=== PATIENT | female | born 1970 | race African-American/Black ===

== ENCOUNTER 2018-04-24 11:34 | Emergency (ER) | payer OTHER, SELFPAY ==
[2018-04-24 11:40] VITALS: BP 150/98; PULSE 76; RESP 15; TEMP 36.9; O2SAT 99; BMI 28.1
--- NOTE | 2018-04-24 12:25 | ED_ITS ---
HPI - Extremity Injury (Lower) <CHAI Tan - Last Filed: 04/24/18 13:37> General Chief Complaint: Extremity Injury, Lower Stated Complaint: LEFT BIG TOE INJURY Time Seen by Provider: 04/24/18 12:07 Source: patient Mode of arrival: ambulatory Limitations: no limitations History of Present Illness HPI Narrative: L big toe nail is loose, has acrylic nail on it, denies any known injury/trauma MD complaint: other Onset (ago): unknown Injury: Left: toes Type of Injury: unknown Severity: mild Relieving factors: nothing Exacerbating factors: weight bearing Other symptoms: none Related Data Home Medications Medication Instructions Recorded Confirmed fluticasone-salmeterol [Advair 2 puff INH BID #0 08/21/17 04/24/18 Diskus] celecoxib 100 mg PO BID 04/24/18 04/24/18 gabapentin [Gralise] 3 tab PO DAILY 04/24/18 04/24/18 loratadine 10 mg PO DAILY 04/24/18 04/24/18 montelukast 10 mg PO DAILY 04/24/18 04/24/18 venlafaxine 2 cap PO DAILY 04/24/18 04/24/18 Allergies Allergy/AdvReac Type Severity Reaction Status Date / Time latex [LATEX] Allergy Unknown RASH Verified 04/24/18 11:40 oxycodone [OXYCODONE] Allergy Unknown RASH/ Verified 04/24/18 11:40 NAUSEA AND VOMITING Review of Systems <CHAI Tan - Last Filed: 04/24/18 13:37> Review of Systems isolated issue to toe nail All systems reviewed & are unremarkable except as noted in HPI and below Constitutional Reports as per HPI and Reports system reviewed and no additional complaints, except as docu Musculoskeletal Reports as per HPI, Denies abnormal gait, Denies deformity, Denies joint swelling, Denies limited range of motion, Denies muscle weakness and Denies numbness Integumentary/Breasts Reports as per HPI, Denies lesions, Reports nail changes, Denies rash, Denies skin swelling, Denies skin ulcer, Denies sores, Denies unusual bruising and Denies wounds Neurologic Denies abnormal gait and Denies numbness Exam <CHAI Tan - Last Filed: 04/24/18 13:37> Initial Vital Signs Initial Vital Signs: Vital Signs Temperature 98.5 F 04/24/18 11:40 Pulse Rate 76 04/24/18 11:40 Respiratory Rate 15 04/24/18 11:40 Blood Pressure 150/98 H 04/24/18 11:40 Pulse Oximetry 99 04/24/18 11:40 Const General: cooperative, healthy appearing, comfortable, well developed and well groomed Nutritional Appearance: average body habitus Orientation: alert, awake and oriented x3 Resp Effort & Inspection: normal respiratory effort and able to speak in complete sentences Back/Spine/Pelvis Cervical Spine: cervical ROM normal Thoracic/Lumbar Spine: thoraco-lumbar ROM limited Skin General: no rashes or lesions noted, elasticity normal, turgor normal and warm Lesions: lesions noted Rashes: rash noted Wounds: wound noted Nails: other Other: L great toe, partial nail avulsion, nail loose from both sides of cuticle but intact at base and corners, pt is pulling nail up and out, even though I told her to leave it alone, she was making it worse, skin under nail intact, no wound, no injury, no infection, thick acrylic nail over top of real nail, approx 3-4mm thick Neuro General: alert, awake and oriented x3 Cranial Nerves: CN's II-XI intact bilaterally Cognition: normal cognition Speech: speech normal Motor: muscle tone normal throughout Sensory Exam: no sensory deficits noted Psych Appearance: grossly normal and well kempt Mental Status: mental status grossly normal Speech and Movement: speech and movement normal Mood: congruent mood Affect: normal affect Attitude: cooperative Thought Process: normal Thought Content: normal Judgment: judgment good <Rae Yang MD - Last Filed: 04/24/18 20:16> Initial Vital Signs Initial Vital Signs: Vital Signs Temperature 98.5 F 04/24/18 11:40 Pulse Rate 76 04/24/18 11:40 Respiratory Rate 15 04/24/18 11:40 Blood Pressure 150/98 H 04/24/18 11:40 Pulse Oximetry 99 04/24/18 11:40 Course <CHAI Tan - Last Filed: 04/24/18 13:37> Course Narrative: tx options discussed, and agreed it was better to leave nail and let it grow out on its own, nail needs trimmed back, nail is approx 6mm too long past toe, recommended she trim this herself or go back to nail salon that put the acrylic on, and then wrap toe to keep it from getting caught on anything , pt wants to wrap it herself after the nail is trimmed down Vital Signs - 8 hr 04/24/18 11:40 Temperature 98.5 F Pulse Rate 76 Respiratory Rate 15 Blood Pressure 150/98 H Pulse Oximetry 99 <Rae Yang MD - Last Filed: 04/24/18 20:16> Vital Signs - 8 hr 04/24/18 11:40 Temperature 98.5 F Pulse Rate 76 Respiratory Rate 15 Blood Pressure 150/98 H Pulse Oximetry 99 MDM - Extremity Injury (Lower) <CHAI Tan - Last Filed: 04/24/18 13:37> Differential Diagnosis Likely other (nail avulsion, abscess, paronychia, injury/trauma, fungus, cellulitis) Discharge Plan Departure Patient Disposition: Home Clinical Impression: Avulsion of nail Discharge Date/Time: 04/24/18 12:45 Interventions: ED Discharge Assessment Last Done: 04/24/18 12:58 Instructions: DI for Nail Avulsion Injury Prescriptions: No Action fluticasone-salmeterol [Advair Diskus] 250 MCG/50 MCG blister with device 2 puff INH BID Qty: 0 RF: 0 venlafaxine 37.5 mg capsule,extended release 24hr 2 cap PO DAILY RF: 0 montelukast 10 mg tablet 10 mg PO DAILY RF: 0 celecoxib 100 mg capsule 100 mg PO BID RF: 0 loratadine 10 mg tablet 10 mg PO DAILY RF: 0 gabapentin [Gralise] 600 mg tablet extended release 24 hr 3 tab PO DAILY RF: 0 Referrals: Balbir Luevano DPM [Non-Staff] - Leyda Garcia DPM [Physician] - (follow up with podiatry as needed) Solange Vargas DPM [Non-Staff] -
--- NOTE | 2018-04-24 12:55 | PC.NURSE ---
1230 minor tenderness around great left toe cuticle. pt had acrylic placed instead of tip and it pulled on nail bed. no drainage noted.
== END 2018-04-24 12:45 | disposition home or self-care (01) ==
PROVIDERS: Emergency Provider Nurse Practitioner
DX: S91.209A Unspecified open wound of unspecified toe(s) with damage to nail, initial encounter (principal)
CPT/HCPCS: 99282

== ENCOUNTER → 2018-09-06 10:02 | Outpatient (CLI) | payer OTHER, SELFPAY ==
--- NOTE | 2018-09-06 | DI.MRI.S_ITS ---
PROCEDURE: MR LUMBAR SPINE WO CON INDICATIONS: Low back and left hip pain. Left leg radicular pain TECHNIQUE: Noncontrast sagittal T1 spin echo and T2 fast echo, sagittal STIR, axial T1 and T2 fast spin echo through the lumbar spine. In cases with scoliosis, additional coronal T2 fast spin echo may be performed. COMPARISON: [facility], MR, L-SPINE W&WO CONTRAST, 08/21/2017, 11:20. FINDINGS: Image quality: Excellent. Alignment and Curvature: There is normal bony alignment. Bone Marrow: Marrow is of normal overall signal. No acute vertebral body compression fractures. Spinal Cord: Conus medullaris terminates at the L1-L2 level. Visualized cord demonstrates normal signal and size. Paraspinous Soft Tissues: No paravertebral masses. L1-L2: Normal appearance L2-L3: Left-sided far lateral broad-based posterior disc bulge. This is probably unchanged although better visualized on the current examination. Bilateral facet arthropathy. No high-grade central canal narrowing. Minimal bilateral partial effacement of the lateral recess although appears symmetric. Mild left foraminal narrowing. No right foraminal stenosis. L3-L4: Mild far lateral left broad-based disc bulge and bilateral facet arthropathy, minimal. This also appears unchanged No canal or lateral recess narrowing. Mild left foraminal narrowing. No right-sided foraminal stenosis. No definite interval change L4-L5: Mild broad-based posterior disc bulge bilateral facet arthropathy. No definite high-grade central canal stenosis. Minimal partial effacement of the left and right lateral recesses although appears symmetric. No foraminal narrowing. L5-S1: Posterior annular fissure and broad-based posterior disc bulge with mild superimposed central disc protrusion bilateral facet arthropathy. Mild canal narrowing. Minimal effacement of the lateral recesses although appears symmetric. Mild bilateral foraminal narrowing. No interval change IMPRESSION: Overall, no definite interval change since 08/21/17. No high-grade canal stenosis. Mild foraminal narrowing as detailed above, left slightly greater than right at L2-L3 and L3-L4. Dictated by: Luc Keller M.D. on 09/08/2018 at 9:14 Approved by: Luc Keller M.D. on 09/08/2018 at 9:21
== END ==
PROVIDERS: Visit Provider Physical Medicine & Rehabilitation Pain Medicine
DX: M54.5 Low back pain (principal); M25.552 Pain in left hip; M51.16 Intervertebral disc disorders with radiculopathy, lumbar region; M51.17 Intervertebral disc disorders with radiculopathy, lumbosacral region; M47.26 Other spondylosis with radiculopathy, lumbar region; M47.27 Other spondylosis with radiculopathy, lumbosacral region; M48.061 Spinal stenosis, lumbar region without neurogenic claudication; M48.07 Spinal stenosis, lumbosacral region
CPT/HCPCS: 72148

== ENCOUNTER 2018-11-05 19:50 | Emergency (ER) | payer OTHER, MEDICAID, SELFPAY ==
[2018-11-05 19:55] VITALS: BP 147/95; PULSE 95; RESP 20; TEMP 36.4; O2SAT 100
--- NOTE | 2018-11-05 20:21 | ED_ITS ---
HPI - Abdominal Pain General Chief Complaint: Abdominal Pain Stated Complaint: surgery on , now pain on the right side Time Seen by Provider: 11/05/18 20:21 Source: patient Mode of arrival: ambulatory Limitations: no limitations History of Present Illness HPI narrative: 48-year-old female who several weeks ago underwent a laparoscopic hysterectomy and tubal and ovary removal and also a bladder sling placed. This was done at an outside facility. She has had a follow-up appointment with her primary surgeon since then. Earlier this week she started having abdominal pain. had a CT scan obtained ordered by the operative surgeon which the patient reported home was unremarkable. She returns today for worsening right upper quadrant abdominal pain. patient is still passing flatus. Still having bowel movements. No urinary symptoms. they did take her cervix. No fevers. No vomiting. she thought that she could not wait until Saturday for her follow-up visit. Related Data Home Medications Medication Instructions Recorded Confirmed fluticasone propion-salmeterol 2 puff INH BID #0 08/21/17 04/24/18 [Advair Diskus] celecoxib 100 mg PO BID 04/24/18 04/24/18 gabapentin [Gralise] 3 tab PO DAILY 04/24/18 04/24/18 loratadine 10 mg PO DAILY 04/24/18 04/24/18 montelukast 10 mg PO DAILY 04/24/18 04/24/18 venlafaxine 2 cap PO DAILY 04/24/18 04/24/18 Allergies Allergy/AdvReac Type Severity Reaction Status Date / Time latex [LATEX] Allergy Unknown RASH Verified 11/05/18 20:00 oxycodone [OXYCODONE] Allergy Unknown RASH/ Verified 11/05/18 20:00 NAUSEA AND VOMITING Review of Systems Constitutional Denies fever(s) and Denies weakness Cardiovascular Denies chest pain and Denies dyspnea Respiratory Denies dyspnea Gastrointestinal Gastrointestinal: Reports abdominal pain, Denies cramping, Denies nausea and Denies vomiting Genitourinary Denies dysuria Musculoskeletal Denies myalgias and Denies arthralgias Integumentary/Breasts Denies rash Neurologic Denies weakness Hematologic/Lymphatic Denies easy bleeding and Denies easy bruising Allergic/Immunologic Denies urticaria [facility] Medical History (Updated 11/05/18 @ 23:01 by Keshawn Jesus DO) Bladder prolapse (Acute) History of hysterectomy (Acute) Social History Smoking Status: Never smoker Social History Smoking Status: Never smoker Exam Initial Vital Signs Initial Vital Signs: Vital Signs Temperature 97.5 F L 11/05/18 19:55 Pulse Rate 95 H 11/05/18 19:55 Respiratory Rate 20 11/05/18 19:55 Blood Pressure 147/95 H 11/05/18 19:55 Pulse Oximetry 100 11/05/18 19:55 Const General: cooperative, comfortable, well developed, well groomed and No acute distress Orientation: alert, awake and oriented x3 Resp Effort & Inspection: normal respiratory effort Auscultation: clear to auscultation bilaterally Cardio Rate: regular rate Rhythm: regular rhythm GI Inspection: distended (Somewhat distended for patient's states this is less than a couple days ago) Palpation: soft and tender (Patient with fairly localized tenderness just medial to her right upper abhi) Skin Other: Well-healing surgical scars consistent with her stated surgical history Neuro General: alert, awake and oriented x3 Cognition: normal cognition Speech: speech normal Extrem General: normal to inspection, capillary refill normal and No edema Psych Appearance: grossly normal and well kempt Course Orders Ordered: ED Orders 11/05/18 20:52 CT abdomen pelvis wo con Stat 11/05/18 21:01 Complete Blood Count AUTO DIFF Stat Comprehensive Metabolic Panel Stat Lipase Stat Vital Signs - 8 hr 11/05/18 19:55 Temperature 97.5 F L Pulse Rate 95 H Respiratory Rate 20 Blood Pressure 147/95 H Pulse Oximetry 100 MDM - Abdominal Pain Lab Data Attestation: I reviewed the patient's lab results. Result diagrams: 11/05/18 21:01 11/05/18 21:01 Lab Results 11/05/18 11/05/18 Range/Units 21:01 21:01 WBC 8.5 (4.5-11.0) X10^3/uL RBC 4.63 (4.0-5.2) X10^6/uL Hgb 12.2 (12.0-16.0) g/dL Hct 36.6 (36-46) % MCV 79.1 L (80-100) fL MCH 26.3 (26-34) PG MCHC 33.3 (30-36) % RDW 13.9 (11.6-14.8) % Plt Count 335 (150-400) X10^3/uL Neut % (Auto) 54.7 (50-75) % Lymph % (Auto) 27.6 (25-40) % Hanson % (Auto) 5.7 (3-14) % Eos % (Auto) 10.9 H (2-4) % Baso % (Auto) 1.1 (0-2) % Neut # (Auto) 4600 (1678-4850) /uL Lymph # (Auto) 2300 (0338-1230) /uL Hanson # (Auto) 500 (0-900) /uL Eos # (Auto) 900 H (0-450) /uL Baso # (Auto) 100 (0-100) /uL Sodium 139 (137-145) mmol/L Potassium 3.3 L (3.4-5.1) mmol/L Chloride 97 L (98-107) mmol/L Carbon Dioxide 32 (22-32) mmol/L BUN 15 (7-17) mg/dL Creatinine 0.80 (0.52-1.04) mg/dL Estimated GFR > 60.0 (>60) mL/min BUN/Creatinine Ratio 18.8 (6-22) Glucose 109 H (70-100) mg/dL Calcium 9.5 (8.4-10.2) mg/dL Total Bilirubin 0.2 (0.2-1.3) mg/dL AST 25 (14-36) IU/L ALT 33 (9-52) IU/L Alkaline Phosphatase 104 (38-126) U/L Total Protein 8.0 (6.3-8.2) g/dL Albumin 4.5 (3.5-5.0) g/dL Globulin 3.5 (1.7-4.1) g/dL Albumin/Globulin Ratio 1.3 (1.0-2.8) Lipase 85 (23-300) U/L Imaging Data CT scan - abdomen: Radiologist's impression: Minimal bilateral lower lobe subsegmental atelectasis otherwise unremarkable. MDM Narrative Medical decision making narrative: Patient had a relatively benign abdominal exam. I did talk with her regarding her options of obtaining a CT scan today to evaluate for intra-abdominal surgical pathology. Informed her that I felt that would be unlikely if an infection had developed this far out. I also felt that to be unlikely that she had a bowel perforation secondary to the surgery this far out from the surgery. Her wounds look well. I felt that an abscess was unlikely. I did give her the option of waiting to see if her symptoms do not improve over the next couple days and waiting for [place] on Saturday however the patient stated that she wanted to find out what was going on so CT scan was ordered. This showed no signs of abscess, seroma or other emergent abdominal surgical pathology. There is no indication for antibiotics. She was instructed to keep her follow-up appointment on Saturday. She was given return precautions. Both her and her who is at bedside expressed understanding and agreement with plan. Discharge Plan Departure Patient Disposition: Home Clinical Impression: Post-operative pain Abdominal pain Qualifiers: Abdominal location: right upper quadrant Qualified Code(s): R10.11 - Right upper quadrant pain Discharge Date/Time: 11/05/18 23:02 Instructions: DI for Abdominal Pain-Adult Activity Restrictions/Additional Instructions: Your CT scan today did not show any signs of infection or obstructions. Keep your scheduled follow-up appointment with your operative surgeon on Saturday. Continue all of her medications as directed by your surgeon. Return to the [facility] department for any new or worsening symptoms Prescriptions: No Action fluticasone propion-salmeterol [Advair Diskus] 250 MCG/50 MCG blister with device 2 puff INH BID Qty: 0 RF: 0 venlafaxine 37.5 mg capsule,extended release 24hr 2 cap PO DAILY RF: 0 montelukast 10 mg tablet 10 mg PO DAILY RF: 0 celecoxib 100 mg capsule 100 mg PO BID RF: 0 loratadine 10 mg tablet 10 mg PO DAILY RF: 0 gabapentin [Gralise] 600 mg tablet extended release 24 hr 3 tab PO DAILY RF: 0
--- NOTE | 2018-11-05 20:52 | DI.CT.S_ITS ---
PROCEDURE: CT ABDOMEN PELVIS WO CON INDICATIONS: Right sided abdominal pain after hysterectomy TECHNIQUE: After the administration of oral contrast, 5 mm thick sections acquired from the diaphragms to the symphysis. 5 mm coronal and sagittal reformats were performed. For radiation dose reduction, the following was used: automated exposure control, adjustment of mA and/or kV according to patient size. COMPARISON: None. FINDINGS: Image quality: Excellent. ABDOMEN: Lung bases: Lung bases demonstrate mild bibasilar atelectasis. Heart size is normal. Solid organs: Liver is normal in size. Gallbladder is surgically absent. Pancreas is normal in size. Spleen is normal in size. No adrenal nodules. Both kidneys are normal in size, without hydronephrosis or nephrolithiasis. Peritoneum and bowel: Bowel loops demonstrate normal wall thickness and caliber. No free fluid or air. Nodes and vessels: No retroperitoneal or mesenteric adenopathy by size criteria. Aorta and inferior vena cava are normal in size. Miscellaneous: No ventral hernias. There are postoperative changes involving the anterior abdominal wall from previous laparoscopic procedure. No abnormal fluid collection. PELVIS: Genitourinary: Bladder wall thickness is normal. Status post hysterectomy. Miscellaneous: No inguinal hernias or adenopathy. Partially imaged bilateral breast implants appear unremarkable. Bones: No suspicious bony lesions. No acute vertebral body compression fractures. IMPRESSION: 1. Mild bibasilar atelectasis. 2. Otherwise, CT abdomen and pelvis without acute abnormalities. Findings are concordant with preliminary radiology report. Dictated by: Jm Bhatt M.D. on 11/06/2018 at 10:40 Approved by: Jm Bhatt M.D. on 11/06/2018 at 10:44
--- NOTE | 2018-11-05 21:13 | PC.NURSE ---
Patient extremely hard IV start. Requires US guided access generally. IV cancelled and Oral Contrast started per MD Jesus
[2018-11-05 21:24] LABS: Add Manual Diff / Slide Review NO; Basophils Absolute Auto 100 /uL (0-100); Basophils Percent Auto 1.1 % (0-2); Eosinophils Absolute Auto 900 /uL (0-450); Eosinophils Percent Auto 10.9 % (2-4); Hematocrit 36.6 % (36-46); Hemoglobin 12.2 g/dL (12.0-16.0); Lymphocytes Absolute Auto 2300 /uL (1100-4500); Lymphocytes Percent Auto 27.6 % (25-40); Mean Corpuscular HGB Conc 33.3 % (30-36); Mean Corpuscular Hemoglobin 26.3 PG (26-34); Mean Corpuscular Volume 79.1 fL (80-100); Monocytes Absolute Auto 500 /uL (0-900); Monocytes Percent Auto 5.7 % (3-14); Neutrophils Absolute Auto 4600 /uL (1500-7000); Neutrophils Percent Auto 54.7 % (50-75); Platelet Count 335 X10^3/uL (150-400); Red Blood Cell Count 4.63 X10^6/uL (4.0-5.2); Red Cell Distribution Width 13.9 % (11.6-14.8); White Blood Cell Count 8.5 X10^3/uL (4.5-11.0)
[2018-11-05 21:37] LABS: Alanine Aminotransferase 33 IU/L (9-52); Albumin 4.5 g/dL (3.5-5.0); Albumin Globulin Ratio 1.3 (1.0-2.8); Alkaline Phosphatase 104 U/L (38-126); Aspartate Aminotransferase 25 IU/L (14-36); BUN Creatinine Ratio 18.8 (6-22); Bilirubin Total 0.2 mg/dL (0.2-1.3); Blood Urea Nitrogen 15 mg/dL (7-17); Calcium 9.5 mg/dL (8.4-10.2); Carbon Dioxide 32 mmol/L (22-32); Chloride 97 mmol/L (98-107); Estimated Glomerular Filt Rate > 60.0 mL/min (>60); Globulin 3.5 g/dL (1.7-4.1); Glucose 109 mg/dL (70-100); HEMOLYSIS < 15 (0-50); Lipase 85 U/L (23-300); Potassium 3.3 mmol/L (3.4-5.1); Sodium 139 mmol/L (137-145)
[2018-11-05 22:58] VITALS: BP 132/68; PULSE 72; O2SAT 99
== END 2018-11-05 23:02 | disposition home or self-care (01) ==
PROVIDERS: Emergency Provider Emergency Medicine
DX: G89.18 Other acute postprocedural pain (principal); R10.11 Right upper quadrant pain
CPT/HCPCS: 36415; 74176; 80053; 83690; 85025; 99283; 99285

== ENCOUNTER → 2019-05-08 17:46 | Outpatient (CLI) | payer OTHER, MEDICAID, SELFPAY ==
--- NOTE | 2019-05-08 | DI.MRI.S_ITS ---
PROCEDURE: MR CERVICAL SPINE WO CON INDICATIONS: Left sided neck pain with left arm radicular symptoms TECHNIQUE: Noncontrast sagittal T1 spin echo and T2 fast spin echo, sagittal STIR, foraminal oblique sagittal T2 fast spin echo, and axial gradient echo or T2 fast spin echo through the cervical spine. COMPARISON: [facility], CR, XR CERVICAL SPINE WITH OBLIQUES, 09/22/2018, 11:07. FINDINGS: Image quality: Excellent. Alignment and Curvature: There is loss of normal cervical lordosis. There is mild kyphosis at C2-C5. Bone Marrow: Marrow demonstrates normal overall signal. The there is moderate reactive signal within the endplates adjacent to the C3-C4, C4-C5, C5-C6 and C6-C7 intervertebral discs. Spinal Cord: Visualized spinal cord has normal size and signal. No cerebellar tonsillar herniation. Paraspinous Soft Tissues: No paravertebral masses. Prevertebral soft tissues are normal in thickness. C2-C3: Moderate disc desiccation. Mild facet and uncovertebral hypertrophy bilaterally. Mild canal stenosis. Moderate right and mild left foraminal stenosis. C3-C4: Moderate disc desiccation. Mild disc height loss. Mild diffuse disc bulge with superimposed small central protrusion. Moderate right and mild left facet and uncovertebral hypertrophy. Mild canal stenosis. Moderate right and mild left foraminal stenosis. C4-C5: Moderate disc height loss and desiccation. Moderate diffuse disc bulge. Moderate facet and uncovertebral hypertrophy bilaterally. Moderate canal stenosis. Mild cord flattening. Moderate left and severe right foraminal stenosis. Right C5 nerve root compression. C5-C6: Moderate disc height loss and desiccation. Mild diffuse disc bulge. Mild facet and uncovertebral hypertrophy bilaterally. Mild canal stenosis. Mild bilateral foraminal stenosis. C6-C7: Moderate disc desiccation. Mild diffuse disc bulge. Mild facet and uncovertebral hypertrophy bilaterally. Mild canal stenosis. Mild bilateral foraminal stenosis. C7-T1: Normal appearance. IMPRESSION: 1. Multilevel degenerative disc and facet disease, as well as uncovertebral hypertrophy. 2. Mid/upper cervical spine kyphosis. 3. Moderate canal stenosis with mild cord flattening at C4-C5. 4 multilevel foraminal stenoses, worst on the right at C4-C5, where there is right C5 nerve root compression. Recommend correlation with clinical symptoms to ascertain relevance of this finding. Dictated by: Shad Jean M.D. on 05/11/2019 at 8:51 Approved by: Shad Jean M.D. on 05/11/2019 at 9:44
== END ==
PROVIDERS: Visit Provider Physical Medicine & Rehabilitation Pain Medicine
DX: M50.11 Cervical disc disorder with radiculopathy, high cervical region (principal); M48.02 Spinal stenosis, cervical region; M40.202 Unspecified kyphosis, cervical region
CPT/HCPCS: 72141

== ENCOUNTER → 2019-08-05 15:18 | Outpatient (CLI) | payer OTHER, MEDICAID, SELFPAY ==
--- NOTE | 2019-08-05 15:24 | DI.MG.S_ITS ---
BILATERAL DIGITAL SCREENING MAMMOGRAM 3D/2D WITH CAD WITH AUGMENTATION: 08/05/2019 CLINICAL: Routine screening. Family history of breast cancer. Comparison is made to exams dated: 06/02/2018 mammogram, 05/30/2017 mammogram, and 05/17/2016 mammogram - [facility]. The tissue of both breasts is heterogeneously dense. This may lower the sensitivity of mammography. Current study was also evaluated with a Computer Aided Detection (CAD) system. Bilateral breast implants are stable. No significant masses, calcifications, or other findings are seen in either breast. There has been no significant interval change. IMPRESSION: NEGATIVE There is no mammographic evidence of malignancy. A 1 year screening mammogram is recommended. This exam was interpreted at Station ID: [id number]. NOTE: For mammograms, a report in lay terms will be sent to the patient. Approximately 15% of breast malignancies will not be visualized mammographically. In the management of a palpable breast mass, a negative mammogram must not discourage biopsy of a clinically suspicious lesion. Electronically Signed By: Brenda reeves/denia:08/05/2019 16:46:51 letter sent: Normal Exam ACR BI-RADS Category 1: Negative [id number]
== END ==
PROVIDERS: PCP Registered Nurse Diabetes Educator; Visit Provider Registered Nurse Diabetes Educator
DX: Z12.31 Encounter for screening mammogram for malignant neoplasm of breast (principal); Z80.3 Family history of malignant neoplasm of breast
CPT/HCPCS: 77063; 77067

== ENCOUNTER → 2020-04-06 16:18 | Outpatient (CLI) | payer MEDICARE, OTHER, SELFPAY ==
--- NOTE | 2020-04-06 16:26 | DI.MRI.S_ITS ---
PROCEDURE: MR PELIS WO/W CON INDICATIONS: Erosion of implanted urethral mesh to surrounding TECHNIQUE: Noncontrast coronal HASTE; 3-plane nonbreath-hold T2 FSE, axial T1 FSE with and without fat saturation obtained through the urethra and bladder. After the administration of contrast, axial and sagittal VIBE or 2-D FLASH with fat saturation obtained through the urethra and bladder. Optional diffusion weighted imaging or ADC may be performed. COMPARISON: None. FINDINGS: Image quality: Excellent. Urethra: A suprapubic periurethral mesh sling is present. This is seen in the coronal plane, and in the sagittal plane. The hypointensity is seen at the 10:00 o'clock and 02:00 o'clock position in the periurethral tissues. There is probable curvilinear hypointensity surrounding in the urethra posteriorly. No definite findings of hypointensity transecting the urethra. There is mild circumferential thickening of the urethral soft tissues and mild diffuse enhancement of the vaginal wall to a similar degree. No diverticula. Genitalia: Vaginal wall are normal in thickness. Images through the upper vagina demonstrate no Selene's duct cyst. More inferior images through the vagina and labia demonstrate no Bartholin's gland cyst. There is mild right labia majora enhancement suggesting inflammation. Peritoneum and bowel: No pathologic free pelvic fluid. Visualized inferior colon loops, rectum, and anus appear normal. Soft tissues: Ischiorectal fossa appears normal in morphology. No adenopathy by size criteria. IMPRESSION: 1. Probable normal position of periurethral mesh. 2. Mild right labial enhancement/inflammation. 3. No significant pelvic floor prolapse. Dictated by: Brenda Rosales M.D. on 04/07/2020 at 13:40 Approved by: Brenda Rosales M.D. on 04/07/2020 at 14:27
== END ==
PROVIDERS: PCP Registered Nurse Diabetes Educator; Referring Provider Obstetrics & Gynecology; Visit Provider Obstetrics & Gynecology
DX: T83.712A Erosion of implanted urethral mesh to surrounding organ or tissue, initial encounter (principal); R10.2 Pelvic and perineal pain; N94.10 Unspecified dyspareunia
CPT/HCPCS: 72197; A9579

== ENCOUNTER → 2020-04-13 07:48 | Outpatient (CLI) | payer MEDICARE, OTHER, SELFPAY ==
--- NOTE | 2020-04-13 | DI.NM.S_ITS ---
PROCEDURE: NM GASTRIC EMPTYING STUDY RADIOPHARMACEUTICAL: 1 mCi Tc-99m sulfur colloid in an egg sandwich. INDICATIONS: Nausea TECHNIQUE: A Tc-99m labeled sulfur colloid labeled egg sandwich or oatmeal was served to the patient. Anterior and posterior planar images of the abdomen were obtained at 0 minutes and 30 minutes, then at hourly intervals up to 4 hours. The patient was upright and ambulating during the interval. COMPARISON: [facility], CT, CT ABDOMEN PELVIS WO CON, 11/05/2018, 21:58. FINDINGS: The stomach has normal size, morphology, and position. There is normal emptying of solid gastric contents from the stomach by visual inspection. No gastroesophageal reflux is visualized. The percentage of tracer retained at specific time points are as follows: Time point Percent gastric retention Normal range 30 minutes 81% 70% or more 1 hour 42% 30% to 90% 2 hours 9% 60% or less 3 hours - 30% or less 4 hours - 10% or less IMPRESSION: Normal gastric emptying study. Dictated by: Josh Bryant M.D. on 04/13/2020 at 11:34 Approved by: Josh Bryant M.D. on 04/13/2020 at 11:35
== END ==
PROVIDERS: PCP Registered Nurse Diabetes Educator; Referring Provider Registered Nurse Diabetes Educator; Visit Provider Internal Medicine
DX: R11.0 Nausea (principal)
CPT/HCPCS: 78264; A9541

== ENCOUNTER → 2020-05-04 12:36 | Outpatient (CLI) | payer MEDICARE, OTHER, SELFPAY ==
[2020-05-04 14:27] LABS: Hematocrit 41.1 % (36-46); Hemoglobin 13.8 g/dL (12.0-16.0); Mean Corpuscular HGB Conc 33.5 % (30-36); Mean Corpuscular Hemoglobin 26.1 PG (26-34); Platelet Count 287 X10^3/uL (150-400); Red Blood Cell Count 5.28 X10^6/uL (4.0-5.2); Red Cell Distribution Width 14.4 % (11.6-14.8); White Blood Cell Count 5.4 X10^3/uL (4.5-11.0)
[2020-05-04 14:33] LABS: Hemoglobin A1C% w Est Avg Glu 6.8 % (4.0-6.0)
[2020-05-04 14:59] LABS: Alanine Aminotransferase 20 IU/L (<35); Albumin 4.7 g/dL (3.5-5.0); Albumin Globulin Ratio 1.3 (1.0-2.8); Alkaline Phosphatase 109 U/L (38-126); Aspartate Aminotransferase 28 IU/L (14-36); BUN Creatinine Ratio 13.4 (6-22); Bilirubin Total 0.3 mg/dL (0.2-1.3); Blood Urea Nitrogen 9 mg/dL (7-17); Calcium 9.8 mg/dL (8.4-10.2); Carbon Dioxide 34 mmol/L (22-32); Chloride 96 mmol/L (98-107); Estimated Glomerular Filt Rate > 60.0 mL/min (>60); Globulin 3.7 g/dL (1.7-4.1); Glucose 107 mg/dL (70-100); HDL Cholesterol 59 mg/dL (40-60); HEMOLYSIS < 15 (0-50); Potassium 3.6 mmol/L (3.4-5.1); Sodium 139 mmol/L (137-145); Total Protein 8.4 g/dL (6.3-8.2); Triglycerides 156 mg/dL (35-150)
[2020-05-04 15:22] LABS: Cholesterol 354 mg/dL (140-199); LDL Cholesterol Calculated 264 mg/dL (<100)
[2020-05-04 15:30] LABS: TSH w/ Reflex to FT4 0.73 uIU/mL (0.47-4.68)
== END ==
PROVIDERS: PCP Registered Nurse Diabetes Educator; Referring Provider Registered Nurse Diabetes Educator; Visit Provider Registered Nurse Diabetes Educator
DX: Z00.00 Encounter for general adult medical examination without abnormal findings (principal); I10 Essential (primary) hypertension; R73.03 Prediabetes
CPT/HCPCS: 36415; 80053; 80061; 83036; 84443; 85027

== ENCOUNTER → 2020-05-24 11:36 | Outpatient (CLI) | payer MEDICARE, OTHER, SELFPAY | PROVIDERS: PCP Registered Nurse Diabetes Educator; Referring Provider Registered Nurse Diabetes Educator; Visit Provider Registered Nurse Diabetes Educator | DX: R73.03 Prediabetes (principal); R73.09 Other abnormal glucose | CPT/HCPCS: 36415; 83036 ==

== ENCOUNTER → 2020-07-23 13:25 | Outpatient (CLI) | payer MEDICARE, OTHER, SELFPAY ==
[2020-07-23 14:40] LABS: COVID19 -Nasal RAPID Negative (Negative)
== END ==
PROVIDERS: Family Provider Registered Nurse Diabetes Educator; PCP Registered Nurse Diabetes Educator; Visit Provider Nurse Practitioner
DX: Z01.812 Encounter for preprocedural laboratory examination (principal); Z20.822 Contact with and (suspected) exposure to COVID-19
CPT/HCPCS: 87635; C9803

== ENCOUNTER → 2020-08-22 08:57 | Outpatient (CLI) | payer MEDICARE, OTHER, SELFPAY ==
[2020-08-22 10:47] LABS: Hemoglobin A1C% w Est Avg Glu 6.2 % (4.0-6.0)
[2020-08-25 12:25] LABS: Cholesterol 238 mg/dL (140-199); HDL Cholesterol 50 mg/dL (40-60); LDL Cholesterol Calculated 170 mg/dL (<100); Triglycerides 92 mg/dL (35-150)
== END ==
PROVIDERS: Family Provider Registered Nurse Diabetes Educator; PCP Registered Nurse Diabetes Educator; Referring Provider Registered Nurse Diabetes Educator; Visit Provider Registered Nurse Diabetes Educator
DX: R73.03 Prediabetes (principal); E78.5 Hyperlipidemia, unspecified; R73.09 Other abnormal glucose; R73.9 Hyperglycemia, unspecified
CPT/HCPCS: 36415; 80061; 83036

== ENCOUNTER → 2020-08-24 10:13 | Outpatient (CLI) | payer MEDICARE, OTHER, SELFPAY ==
--- NOTE | 2020-08-24 | DI.MG.S_ITS ---
BILATERAL DIGITAL SCREENING MAMMOGRAM 3D/2D WITH CAD WITH AUGMENTATION: 08/24/2020 CLINICAL: Routine screening. Family history of breast cancer. Comparison is made to exams dated: 08/05/2019 mammogram - [facility], 06/02/2018 mammogram, and 05/30/2017 mammogram - [facility]. The tissue of both breasts is heterogeneously dense. This may lower the sensitivity of mammography. Current study was also evaluated with a Computer Aided Detection (CAD) system. Bilateral breast implants are stable. There is a stable benign focal asymmetry in the right breast. No significant masses, calcifications, or other findings are seen in either breast. There has been no significant interval change. IMPRESSION: BENIGN There is no mammographic evidence of malignancy. A 1 year screening mammogram is recommended. This exam was interpreted at Station ID: [id number]. NOTE: For mammograms, a report in lay terms will be sent to the patient. Approximately 15% of breast malignancies will not be visualized mammographically. In the management of a palpable breast mass, a negative mammogram must not discourage biopsy of a clinically suspicious lesion. Electronically Signed By: Brennan Recio acr/penrad:08/24/2020 11:27:13 letter sent: Normal Exam ACR BI-RADS Category 2: Benign Finding(s) 3342F
== END ==
PROVIDERS: Family Provider Registered Nurse Diabetes Educator; PCP Registered Nurse Diabetes Educator; Referring Provider Registered Nurse Diabetes Educator; Visit Provider Registered Nurse Diabetes Educator
DX: Z12.31 Encounter for screening mammogram for malignant neoplasm of breast (principal); Z80.3 Family history of malignant neoplasm of breast
CPT/HCPCS: 77063; 77067

== ENCOUNTER 2020-09-07 10:30 | Outpatient (RCR) | payer MEDICARE, OTHER, SELFPAY ==
--- NOTE | 2020-07-06 16:52 | ST.OPIE ---
Visit Care Team Role Provider Type CHAI Mayer Family Provider Advanced Tobacco Classer Primary Care Provider Specialty: Medical Address: [address] [place] [address], [id number] Email: [email or web address] Chino Carrera MD Attending Provider Physician Referring Provider Specialty: Ear, Nose, Throat Address: [address] [place] [address], [id number] Email: [email or web address] Speech-Language Pathology Initial Evaluation SECURITIES UNDERWRITER Voice Resonance Evaluation Start: 07/06/20 14:31 Freq: Status: Active Protocol: Document 07/06/20 14:31 DARRION (Rec: 07/06/20 14:41 DARRION [email or web address]) Voice and Resonance Assessment Session Time Visit Start Time 14:30 Visit Stop Time 15:30 Total Visit Minutes 60 Visit Information Visit Number Initial Evaluation Plan of Care Dates 07/06/20 - 10/04/20 Insurance Information Medicare Next Note Type Next Note Type Treatment Note Referral Referring Physician Dr. Chino Carrera Reason for Referral Vocal Hoarseness Setting Setting Outpatient Care Patient History General Information Pt is a 50-yr-old female experiencing hoarseness since Feb when she underwent a dental procedure with anesthesia and intubation. The procedure was to take 15 min but extended to 4 hrs, during which the pt vomited and aspirated on vomit. She was mostly aphonic for ~1 mo; now voice is increasingly hoarse with use and comes and goes. The pt experienced throat swelling and difficulty swallowing immediately after the procedure, both of which have now resolved. She denies pain with voicing. Pt has GERD that is treated with medication as well as a hiatal hernia. She has had recent increase of GERD symptoms and is scheduled for f/u with GI soon. Relevant PMHx includes ACDF surgery (2008 done in [place]) and dx of diabetes ~1 mo ago. The pt had no dysphagia or dyphonia following ACDF surgery. Hearing Hearing Level Needs Hearing Check Auditory History Hearing gets stuffy; mild loss from being around ammunition. Vision Vision Status Impaired Comments Wears prescription glasses [place] Langauge Language(s) Spoken in the Home Arabic Educational Status Education Level Post-college, BA+ Occupational Status Occupation Status Retired Previous Therapy Previous Speech-Language Therapy No Oral Motor Assessment Source: [employer] [employer] ([employer]). Oral-Motor Eval Completed No Subjective Subjective The pt arrived on time and provided case history supplemental to medical records. - Laryngeal Performance S/Z Ratio S/Z Ratio 0.4154 Functional for Speech Yes Reduced Laryngeal Function Relative to No Respiration Voice Handicap Index VHI Comments Provided to pt to complete and return CAPE-V Overall Severity 44% Moderate (Intermittent) Roughness 50% Moderate (Intermittent) Breathiness WNL Strain 40% Moderate (Intermittent) Pitch 22% Mild (increased tension) Loudness WNL Normal Resonance? Yes Additional Features Other Other Features Observed Reduced stamina, increased fatigue, roughness and strain with use Maximum Phonation Time MPT Norms: Women (15-25) Men (25-35) Loudness (50-60 dB); Speaking Rate: Oral Reading of Sentences (190 Words Per Minute); Oral Reading of Paragraphs (160-170 WPM); Speaking Rate in Conversation (150-250 WPM) Maximum Phonation Time 16sec Maximum Phonation Time Adequate for Speech,Reduced Maximum Phonation Time Comments Weak, strained voice Jitter/Shimmer Norms: Jitter (Less than or equal to 1.040% - Frequency) Norms: Shimmer (Less than or equal to 3.810% - Amplitude) Jitter 0.12 SNL Shimmer 0.66 WNL Pitch Tyler Pitch Tyler WNL,Tension Pitch Tyler Comments [id number] Breath Support Breath Support Sustained Phonation Thoracic Breath Support Conversation Mixed Speaks on Room Air Yes Voice Pitch Range Norms: Women (100-300 Hz) Men (70-250 Hz) Fundamental Frequency Norms: Women (Mean: 225 Hz; Range: 155-334 Hz) Men ( Mean: 128 Hz; Range: 85-196 Hz) Fundamental Frequency 238 (WNL) Paradoxical Vocal Fold Movement No Indications Resonance Nasal Resonance Normal Oral Resonance Normal Therapeutic Techniques Therapy Tactics Increase Loudness Findings Findings Moderate Impairment Voice/Resonance Assessment Assessment The pt presents with moderate dysphonia characterized by intermittent hoarseness and strain that increase over duration of use, indicating reduced stamina of VF use. 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 She is also diagnosed with GERD with symptoms increasing recently, and this could be a contributing factor. Will appreciate report from GI after the pt's upcoming appt with them. The pt is a good candidate for voice therapy, given the recent and clear onset of symptoms from intubation experience. Prognosis Rehabilitation Potential Good - Recommendations Treatment Recommended Yes Treatment Frequency/Duration Up to 12 sessions over 2-3 mos Therapy Recommendations Pt education and training RE vocal hygiene, GERD/LPR precautions, and voice exercises. Short Term Goals 1. The pt will demonstrate understanding of vocal hygiene strategies by identifying 2 or more behavioral modifications she can make to communicate with family without vocal abuse. 2. The pt will perform diaphragmatic breathing in structured tasks with 80% accuracy to improve breath support for speech and voice. 3. The pt will perform laryngeal relaxation techniques with min cues and 80% acc to improve vocal quality and ease. 4. The pt will perform forward focus phonation (FFP) with 80 % accuracy in structured tasks to reduce laryngeal tension and improve vocal production and stamina. 5. The pt will sustain phonation with good vocal quality for 20 sec across three trials to improve breath support for voice and speech and improve vocal function. Custodial Goals 1. The pt will perform diaphragmatic breathing independently in vocal exercises and spontaneous speech tasks to improve breath support for speech and voice. 2. The pt will perform laryngeal relaxation techniques independently to extend duration of speech with optimal vocal quality. 3. The pt will exhibit vocal quality WNL as measured by VHI and CAPE-V perceptual rating forms. 4. The pt will produce vocal quality WNL in spontaneous conversation of 15 min or more to improve ability to maintain vocal stamina for functional conversations and speech tasks. 5. The pt will follow vocal hygiene strategies independently in functional settings to protect voice and maintain good vocal quality, as measured by pt report and clinician judgment. Referrals Referrals ENT Voice/Resonance Other Referral ENT for hearing assessment. Patient/Caregiver Education Patient/Family Education Described results of evaluation,Patient Understanding Vocally Abusive Behavior Behavior Rating Alcohol Consumption Never Hines Talking Never Arguing (peers/siblings/other) Daily with children Athletic Activity Yelling Never Mouth Breathing Never Caffeine Use 1 cup/day Calling from Distance Frequently Cheerleading Participation Never Coughing/Sneezing Loudly coughing in evenings daily Crying Never Use of Dairy Products Frequently Environmental Irritant Exposure Infrequently Use of Inhalants Daily inhaler for asthma Laughing Hard/Abusively Infrequently Singing Abusively Infrequently Smoking Daily vaping, no nicotine ( quit smoking cigarettes in 2016) Excessive Talking Occasionally Making Animal /Toy Noises Never Yelling/Screaming Occasionally
--- NOTE | 2020-07-13 16:26 | ST.OPTN ---
Visit Care Team Role Provider Type CHAI Mayer Family Provider Advanced Pbx Installer Primary Care Provider Address: [address] [place] [address], [id number] Chino Carrera MD Attending Provider Physician Referring Provider Address: [address] [place] [address] [place], [address] HEAVY EQUIPMENT TECHNICIAN Treatment Note HEAVY EQUIPMENT TECHNICIAN Treatment Note Start: 07/06/20 14:31 Freq: Status: Active Protocol: Document 07/13/20 15:39 DARRION (Rec: 07/13/20 15:39 DARRION [id number]) Speech Pathology Treatment Note Session Time Visit Start Time 14:30 Visit Stop Time 15:15 Total Visit Minutes 45 Visit Information Visit Number 1 Plan of Care Dates 07/06/20 - 10/04/20 Insurance Information Medicare Setting Treatment Setting Outpatient Care Visit Type Note Type Treatment Note Next Note Type Next Note Type Treatment Note General Information General Information Pt is a 50-yr-old female experiencing hoarseness since Feb when she underwent a dental procedure with anesthesia and intubation. The procedure was to take 15 min but extended to 4 hrs, during which the pt vomited and aspirated on vomit. She was mostly aphonic for ~1 mo; now voice is increasingly hoarse with use and comes and goes. The pt experienced throat swelling and difficulty swallowing immediately after the procedure, both of which have now resolved. She denies pain with voicing. Pt has GERD that is treated with medication as well as a hiatal hernia. She has had recent increase of GERD symptoms and is scheduled for f/u with GI soon. Relevant PMHx includes ACDF surgery (2008 done in [place]) ; hx of asthma controlled with daily inhaler; and dx of diabetes ~1 mo ago. The pt had no dysphagia or dyphonia following ACDF surgery. Subjective Identification Type Name,ID Card Observations/Patient Presentation The pt arrived on time. No new complaints. Chief Complaint(s) Voice Patient Knowledge/Awareness of HEAVY EQUIPMENT TECHNICIAN Role Good in Treatment Objective Short Term Goals 1. The pt will demonstrate understanding of vocal hygiene strategies by identifying 2 or more behavioral modifications she can make to communicate with family without vocal abuse. 2. The pt will perform diaphragmatic breathing in structured tasks with 80% accuracy to improve breath support for speech and voice. 3. The pt will perform laryngeal relaxation techniques with min cues and 80% acc to improve vocal quality and ease. 4. The pt will perform forward focus phonation (FFP) with 80 % accuracy in structured tasks to reduce laryngeal tension and improve vocal production and stamina. 5. The pt will sustain phonation with good vocal quality for 20 sec across three trials to improve breath support for voice and speech and improve vocal function. Penitentiary Goals 1. The pt will perform diaphragmatic breathing independently in vocal exercises and spontaneous speech tasks to improve breath support for speech and voice. 2. The pt will perform laryngeal relaxation techniques independently to extend duration of speech with optimal vocal quality. 3. The pt will exhibit vocal quality WNL as measured by VHI and CAPE-V perceptual rating forms. 4. The pt will produce vocal quality WNL in spontaneous conversation of 15 min or more to improve ability to maintain vocal stamina for functional conversations and speech tasks. 5. The pt will follow vocal hygiene strategies independently in functional settings to protect voice and maintain good vocal quality, as measured by pt report and clinician judgment. Treatment Activities Education and training provided RE diaphragmatic breathing, subsystems of voice , vocal hygiene, and potential impact of GERD/LPR and chronic coughing on vocal quality. The pt verbalized understanding of all information. Trained pt in alternative cough techniques including hard swallow and silent/gentle cough. Pt returned demonstration and verbalized understanding. Trained pt in diaphragmatic breathing using hands on chest and belly for biofeedback. Pt returned demonstration and performed 6 deep breaths, primarily from diaphragm, occasionally mixed diaphragmatic/thoracic breathing. Instructions and exercises for home practice provided orally and in writing . Educated and intiated training in using breath to power the voice, with examples of optimal vs strained voice particularly when attempting to increase loudness. Pt verbalized perception of the difference and was able to discriminate. Assessment Patient Response to Treatment Good Rehab Potential Excellent Impairments Identified Dysphonia,Vocal Quality,Vocal Hygiene Assessment of Improvement The pt was responsive to all education and training provided today. She performed techniques as instructed and demonstrated ability to discriminate between optimal and disordered vocal use. Reviewed with Patient Goals,Progress Being Made,Home Exercise Program Patient/Caregiver Understanding Excellent Plan Amount of Therapy Recommended 1-2 Months Frequency of Treatment Once a Week Length of Session 45 Minutes Treatment Emphasis Next Session F/U on today's training; initiate FFR Therapeutic Contents Client Education,Home Exercise Program,Voice Training Provided Patient/Caregiver Instruction Home Exercise Program,Plan of Care,Questions/Concerns Therapy Recommendations Continue with Current Program
--- NOTE | 2020-08-10 16:43 | ST.OPTN ---
Visit Care Team Role Provider Type CHAI Mayer Family Provider Advanced Painting Department Supervisor Primary Care Provider Address: [address] [place] [address], [id number] Chino Carrera MD Attending Provider Physician Referring Provider Address: [address] [place] [address] [place], [address] FLATWORK PRESSER Treatment Note FLATWORK PRESSER Treatment Note Start: 07/06/20 14:31 Freq: Status: Active Protocol: Document 08/03/20 11:49 DARRION (Rec: 08/04/20 11:55 DARRION [email or web address]) Speech Pathology Treatment Note Session Time Visit Start Time 14:30 Visit Stop Time 15:15 Total Visit Minutes 45 Visit Information Visit Number 2 Plan of Care Dates 07/06/20 - 10/04/20 Insurance Information Medicare Setting Treatment Setting Outpatient Care Visit Type Note Type Treatment Note Next Note Type Next Note Type Treatment Note General Information General Information Pt is a 50-yr-old female experiencing hoarseness since Feb when she underwent a dental procedure with anesthesia and intubation. The procedure was to take 15 min but extended to 4 hrs, during which the pt vomited and aspirated on vomit. She was mostly aphonic for ~1 mo; now voice is increasingly hoarse with use and comes and goes. The pt experienced throat swelling and difficulty swallowing immediately after the procedure, both of which have now resolved. She denies pain with voicing. Pt has GERD that is treated with medication as well as a hiatal hernia. She has had recent increase of GERD symptoms and is scheduled for f/u with GI soon. Relevant PMHx includes ACDF surgery (2008 done in [place]) ; hx of asthma controlled with daily inhaler; and dx of diabetes ~1 mo ago. The pt had no dysphagia or dyphonia following ACDF surgery. Subjective Identification Type Name,ID Card Observations/Patient Presentation The pt arrived on time. No new complaints. She reported practicing diaphragmatic breathing and cough alternatives. Noted she is now rarely coughing. Chief Complaint(s) Voice Patient Knowledge/Awareness of FLATWORK PRESSER Role Good in Treatment Patient/Caregiver Compliance with Home Excellent Exercise Program Objective Short Term Goals 1. The pt will demonstrate understanding of vocal hygiene strategies by identifying 2 or more behavioral modifications she can make to communicate with family without vocal abuse. 2. The pt will perform diaphragmatic breathing in structured tasks with 80% accuracy to improve breath support for speech and voice. 3. The pt will perform laryngeal relaxation techniques with min cues and 80% acc to improve vocal quality and ease. 4. The pt will perform forward focus phonation (FFP) with 80 % accuracy in structured tasks to reduce laryngeal tension and improve vocal production and stamina. 5. The pt will sustain phonation with good vocal quality for 20 sec across three trials to improve breath support for voice and speech and improve vocal function. Snf Goals 1. The pt will perform diaphragmatic breathing independently in vocal exercises and spontaneous speech tasks to improve breath support for speech and voice. 2. The pt will perform laryngeal relaxation techniques independently to extend duration of speech with optimal vocal quality. 3. The pt will exhibit vocal quality WNL as measured by VHI and CAPE-V perceptual rating forms. 4. The pt will produce vocal quality WNL in spontaneous conversation of 15 min or more to improve ability to maintain vocal stamina for functional conversations and speech tasks. 5. The pt will follow vocal hygiene strategies independently in functional settings to protect voice and maintain good vocal quality, as measured by pt report and clinician judgment. Treatment Activities Continued education and training in breath support for voice/speech. Pt performing diaphragmatic breathing independently. Performed sustained phonation for 25 sec with intermittent rough voice , improved with increased loudness. Trained pt in staccato phonation for vf adduction with and without hand presses and pulling into chair. Pt performed appropriately with crisph vocal onset. Perceived frequent presence of glottal dougherty in pt's voice. Education provided with demonstration. Given alternating voice from FLATWORK PRESSER in normal and dougherty registers, the pt correctly discriminated between each. Given sentence pairs where one sentence is a question (upward inflection) and the other a statement ( downward inflection), the pt read statements without glottal dougherty in 70% of trials. She increased her ability to identify dougherty and correct it over the course of the exercise, demonstrating understanding and ability to modify. Assessment Patient Response to Treatment Good Rehab Potential Excellent Impairments Identified Dysphonia,Vocal Quality,Vocal Hygiene Progress Towards Goals Good Progress Assessment of Overall Progress Improving Assessment of Improvement Reduced coughing. Responsive to glottal dougherty training and able to both perceive in others and modify in her own voice. MPT is WNL with intermittent clear/rough quality, improved with increased loudness. The pt is using diaphragmatic breathing appropriately to project voice . Able to perform VF adduction exercises. Reviewed with Patient Goals,Progress Being Made,Home Exercise Program Patient/Caregiver Understanding Excellent Plan Amount of Therapy Recommended 1-2 Months Frequency of Treatment Once a Week Length of Session 45 Minutes Treatment Emphasis Next Session F/U on today's training; initiate FFR Therapeutic Contents Client Education,Home Exercise Program,Voice Training Provided Patient/Caregiver Instruction Home Exercise Program,Plan of Care,Questions/Concerns Therapy Recommendations Continue with Current Program
--- NOTE | 2020-08-10 17:00 | ST.OPTN ---
Visit Care Team Role Provider Type CHAI Mayer Family Provider Advanced Geriatric Social Work Professor Primary Care Provider Address: [address] [place] [address], [id number] Chino Carrera MD Attending Provider Physician Referring Provider Address: [address] [place] [address] [place], [address] CUSTOMER SUPPORT MANAGER Treatment Note CUSTOMER SUPPORT MANAGER Treatment Note Start: 07/06/20 14:31 Freq: Status: Active Protocol: Document 08/10/20 08:48 DARRION (Rec: 08/16/20 09:00 DARRION [id number]) Speech Pathology Treatment Note Session Time Visit Start Time 15:30 Visit Stop Time 16:15 Total Visit Minutes 45 Visit Information Visit Number 3 Plan of Care Dates 07/06/20 - 10/04/20 Insurance Information Medicare Setting Treatment Setting Outpatient Care Visit Type Note Type Treatment Note Next Note Type Next Note Type Treatment Note General Information General Information Pt is a 50-yr-old female experiencing hoarseness since Feb when she underwent a dental procedure with anesthesia and intubation. The procedure was to take 15 min but extended to 4 hrs, during which the pt vomited and aspirated on vomit. She was mostly aphonic for ~1 mo; now voice is increasingly hoarse with use and comes and goes. The pt experienced throat swelling and difficulty swallowing immediately after the procedure, both of which have now resolved. She denies pain with voicing. Pt has GERD that is treated with medication as well as a hiatal hernia. She has had recent increase of GERD symptoms and is scheduled for f/u with GI soon. Relevant PMHx includes ACDF surgery (2008 done in [place]) ; hx of asthma controlled with daily inhaler; and dx of diabetes ~1 mo ago. The pt had no dysphagia or dyphonia following ACDF surgery. Subjective Identification Type Name,ID Card Observations/Patient Presentation The pt arrived on time. No new complaints. She reported practicing exercises and feels voice is a bit better. Chief Complaint(s) Voice Patient Knowledge/Awareness of CUSTOMER SUPPORT MANAGER Role Good in Treatment Patient/Caregiver Compliance with Home Excellent Exercise Program Objective Short Term Goals 1. The pt will demonstrate understanding of vocal hygiene strategies by identifying 2 or more behavioral modifications she can make to communicate with family without vocal abuse. 2. The pt will perform diaphragmatic breathing in structured tasks with 80% accuracy to improve breath support for speech and voice. 3. The pt will perform laryngeal relaxation techniques with min cues and 80% acc to improve vocal quality and ease. 4. The pt will perform forward focus phonation (FFP) with 80 % accuracy in structured tasks to reduce laryngeal tension and improve vocal production and stamina. 5. The pt will sustain phonation with good vocal quality for 20 sec across three trials to improve breath support for voice and speech and improve vocal function. Surveillance Technician Goals 1. The pt will perform diaphragmatic breathing independently in vocal exercises and spontaneous speech tasks to improve breath support for speech and voice. 2. The pt will perform laryngeal relaxation techniques independently to extend duration of speech with optimal vocal quality. 3. The pt will exhibit vocal quality WNL as measured by VHI and CAPE-V perceptual rating forms. 4. The pt will produce vocal quality WNL in spontaneous conversation of 15 min or more to improve ability to maintain vocal stamina for functional conversations and speech tasks. 5. The pt will follow vocal hygiene strategies independently in functional settings to protect voice and maintain good vocal quality, as measured by pt report and clinician judgment. Treatment Activities Continued training in vocal dougherty with audio and video (of VFs) demonstrations. Pt performed diaphragmatic breathing, sustained and staccato phonation with min cues. Initiated training in Forward Focus Resonance (FFR) using /m/ in isolation and initial position of CV syllables and CVC words. Pt immediately able to find buzz at lips and bridge of nose. She performed syllables and words initially with roughness on V/VC, improved to 78% accuracy with practice. Pt demonstrated understanding of concepts and targets sufficient for home practice. Intermittent vocal dougherty perceived in pt's voice in structured tasks and spontaneous speech. Pt aware of it in structured tasks in ~ 60% of occurrences; minimal awareness in spontaneous speech. Needs further training . Intermittent true roughness of voice perceived in spontaneous speech as well; question impact of fatigue. Trained pt in yawn/sigh to decrease strain at larynx. Pt able to perform and transfer to open throat while reading short poems with ~65% accuracy, good awareness when roughness occurs and ability to modify voice to eliminate. This technique improved vocal quality. Assessment Patient Response to Treatment Good Rehab Potential Excellent Impairments Identified Dysphonia,Vocal Quality,Vocal Hygiene Progress Towards Goals Good Progress Assessment of Overall Progress Improving Assessment of Improvement The pt is making good progress toward goals. Vocal dougherty and true roughness of voice continue to be present intermittently. The pt benefits from FFR and open throat with yawn/sigh technique and is increasing in her self-awareness and - correction of glottal dougherty. Further therapy needed to continue training and reinforcement of vocal modifications. Reviewed with Patient Goals,Progress Being Made,Home Exercise Program Patient/Caregiver Understanding Excellent Plan Amount of Therapy Recommended 1-2 Months Frequency of Treatment Once a Week Length of Session 45 Minutes Treatment Emphasis Next Session Cont FFR, laryngeal relaxation Therapeutic Contents Client Education,Home Exercise Program,Voice Training Provided Patient/Caregiver Instruction Home Exercise Program,Plan of Care,Questions/Concerns Therapy Recommendations Continue with Current Program
--- NOTE | 2020-08-17 17:42 | ST.OPTN ---
Visit Care Team Role Provider Type CHAI Mayer Family Provider Advanced Warhead Maintenance Specialist Primary Care Provider Address: [address] [place] [address], [id number] Chino Carrera MD Attending Provider Physician Referring Provider Address: [address] [place] [address] [place], [address] ASSEMBLY LINE ROBOT OPERATOR Treatment Note ASSEMBLY LINE ROBOT OPERATOR Treatment Note Start: 07/06/20 14:31 Freq: Status: Active Protocol: Document 08/17/20 17:16 DARRION (Rec: 08/17/20 17:42 DARRION [id number]) Speech Pathology Treatment Note Session Time Visit Start Time 14:30 Visit Stop Time 15:20 Total Visit Minutes 50 Visit Information Visit Number 4 Plan of Care Dates 07/06/20 - 10/04/20 Insurance Information Medicare Setting Treatment Setting Outpatient Care Visit Type Note Type Treatment Note Next Note Type Next Note Type Treatment Note General Information General Information Pt is a 50-yr-old female experiencing hoarseness since Feb when she underwent a dental procedure with anesthesia and intubation. The procedure was to take 15 min but extended to 4 hrs, during which the pt vomited and aspirated on vomit. She was mostly aphonic for ~1 mo; now voice is increasingly hoarse with use and comes and goes. The pt experienced throat swelling and difficulty swallowing immediately after the procedure, both of which have now resolved. She denies pain with voicing. Pt has GERD that is treated with medication as well as a hiatal hernia. She has had recent increase of GERD symptoms and is scheduled for f/u with GI soon. Relevant PMHx includes ACDF surgery (2008 done in [place]) ; hx of asthma controlled with daily inhaler; and dx of diabetes ~1 mo ago. The pt had no dysphagia or dyphonia following ACDF surgery. Subjective Identification Type Name,ID Card Observations/Patient Presentation The pt arrived on time. She reported and exhibited significant increase in vocal hoarseness, apparently from overuse during that last week. The pt reported having had a busy week with several lengthy conversations, one lasting 10 hours during a hair appointment she attended with her daughter. She had little vocal rest. She reports good hydration (~1 gal water/day). Chief Complaint(s) Voice Patient Knowledge/Awareness of ASSEMBLY LINE ROBOT OPERATOR Role Good in Treatment Patient/Caregiver Compliance with Home Excellent Exercise Program Objective Short Term Goals 1. The pt will demonstrate understanding of vocal hygiene strategies by identifying 2 or more behavioral modifications she can make to communicate with family without vocal abuse. 2. The pt will perform diaphragmatic breathing in structured tasks with 80% accuracy to improve breath support for speech and voice. 3. The pt will perform laryngeal relaxation techniques with min cues and 80% acc to improve vocal quality and ease. 4. The pt will perform forward focus phonation (FFP) with 80 % accuracy in structured tasks to reduce laryngeal tension and improve vocal production and stamina. 5. The pt will sustain phonation with good vocal quality for 20 sec across three trials to improve breath support for voice and speech and improve vocal function. Correction Goals 1. The pt will perform diaphragmatic breathing independently in vocal exercises and spontaneous speech tasks to improve breath support for speech and voice. 2. The pt will perform laryngeal relaxation techniques independently to extend duration of speech with optimal vocal quality. 3. The pt will exhibit vocal quality WNL as measured by VHI and CAPE-V perceptual rating forms. 4. The pt will produce vocal quality WNL in spontaneous conversation of 15 min or more to improve ability to maintain vocal stamina for functional conversations and speech tasks. 5. The pt will follow vocal hygiene strategies independently in functional settings to protect voice and maintain good vocal quality, as measured by pt report and clinician judgment. Treatment Activities Initiated Vocal Function Exercises (VFE) to improve vocal function and quality without hyperfunction. Trained pt in the 4 protocol steps, which she performed as instructed with clear vocal quality. MPT = 20.5, Highest pitch achieved: 429 Hz with good quality. Lowest pitch not instrumentally measured. After completing a task, the pt tended to comment on performance with distinctly strained back of throat focused voice, increasing hyperfunction. With repeated correction, she began to reduce this behavior and did acknowledge a habit of using her voice in that manner. Skilled feedback/education RE the potential damage to the voice that that behavior can cause. The pt verbalized understanding and intention to increase her awareness of how she is using her voice and decrease misuse. Assessment Patient Response to Treatment Good Rehab Potential Excellent Impairments Identified Dysphonia,Vocal Quality,Vocal Hygiene Progress Towards Goals Good Progress Assessment of Overall Progress Improving Assessment of Improvement Significant regression in vocal quality perceived which appears to have resulted from overuse of her voice during the last week. The pt was responsive to VFE training, able to perform as instructed with good vocal quality and absence of strain in voice during tasks. Vocal quality during comments between tasks and occ in conversation reverted to significant strain . The pt was verbalized recognition of such voice use, her habit of using it in that way, and intention to monitor and reduce. VFE are anticipated to be a beneficial adaptation of previous tx targets to continue VF adduction and ease VF tension and, hopefully, mis/overuse. Reviewed with Patient Goals,Progress Being Made,Home Exercise Program Patient/Caregiver Understanding Excellent Plan Amount of Therapy Recommended 1-2 Months Frequency of Treatment Once a Week Length of Session 45 Minutes Treatment Emphasis Next Session Cont FFR, laryngeal relaxation Therapeutic Contents Client Education,Home Exercise Program,Voice Training Provided Patient/Caregiver Instruction Home Exercise Program,Plan of Care,Questions/Concerns Therapy Recommendations Continue with Current Program
--- NOTE | 2020-09-07 12:32 | ST.OPTN ---
Visit Care Team Role Provider Type CHAI Mayer Family Provider Advanced Artisan Plasterer Primary Care Provider Address: [address] [place] [address], [address] Chino Carrera MD Attending Provider Physician Referring Provider Address: [address] [place] [address] [place], [address] CHIEF OPERATOR HYDROFORMER Treatment Note CHIEF OPERATOR HYDROFORMER Treatment Note Start: 07/06/20 14:31 Freq: Status: Active Protocol: Document 09/07/20 12:12 DARRION (Rec: 09/07/20 12:31 DARRION [id number]) Speech Pathology Treatment Note Session Time Visit Start Time 10:30 Visit Stop Time 11:15 Total Visit Minutes 45 Visit Information Visit Number 5 Plan of Care Dates 07/06/20 - 10/04/20 Insurance Information Medicare Setting Treatment Setting Outpatient Care Visit Type Note Type Treatment Note Next Note Type Next Note Type Treatment Note General Information General Information Pt is a 50-yr-old female experiencing hoarseness since Feb when she underwent a dental procedure with anesthesia and intubation. The procedure was to take 15 min but extended to 4 hrs, during which the pt vomited and aspirated on vomit. She was mostly aphonic for ~1 mo; now voice is increasingly hoarse with use and comes and goes. The pt experienced throat swelling and difficulty swallowing immediately after the procedure, both of which have now resolved. She denies pain with voicing. Pt has GERD that is treated with medication as well as a hiatal hernia. She has had recent increase of GERD symptoms and is scheduled for f/u with GI soon. Relevant PMHx includes ACDF surgery (2008 done in [place]) ; hx of asthma controlled with daily inhaler; and dx of diabetes ~1 mo ago. The pt had no dysphagia or dyphonia following ACDF surgery. Subjective Identification Type Name,ID Card Observations/Patient Presentation The pt arrived on time and c/o continued hoarseness and vocal fatigue despite excellent compliance with HEP. People frequently ask her if she's ill and what is wrong with her voice. She expressed significant frustration. Chief Complaint(s) Voice Patient Knowledge/Awareness of CHIEF OPERATOR HYDROFORMER Role Good in Treatment Patient/Caregiver Compliance with Home Excellent Exercise Program Objective Short Term Goals 1. The pt will demonstrate understanding of vocal hygiene strategies by identifying 2 or more behavioral modifications she can make to communicate with family without vocal abuse. 2. The pt will perform diaphragmatic breathing in structured tasks with 80% accuracy to improve breath support for speech and voice. 3. The pt will perform laryngeal relaxation techniques with min cues and 80% acc to improve vocal quality and ease. 4. The pt will perform forward focus phonation (FFP) with 80 % accuracy in structured tasks to reduce laryngeal tension and improve vocal production and stamina. 5. The pt will sustain phonation with good vocal quality for 20 sec across three trials to improve breath support for voice and speech and improve vocal function. Jail Goals 1. The pt will perform diaphragmatic breathing independently in vocal exercises and spontaneous speech tasks to improve breath support for speech and voice. 2. The pt will perform laryngeal relaxation techniques independently to extend duration of speech with optimal vocal quality. 3. The pt will exhibit vocal quality WNL as measured by VHI and CAPE-V perceptual rating forms. 4. The pt will produce vocal quality WNL in spontaneous conversation of 15 min or more to improve ability to maintain vocal stamina for functional conversations and speech tasks. 5. The pt will follow vocal hygiene strategies independently in functional settings to protect voice and maintain good vocal quality, as measured by pt report and clinician judgment. Treatment Activities Consulted with pt RE ongoing concerns. Her voice was, indeed, perceived to be frequently rough, distinct from glottal dougherty. Discussed original injury and recommended pt be seen for videostroboscopy for further evaluation and to rule out pathology that may be preventing her from benefiting from voice therapy. The pt was agreeable to this and expressed preference of [facility]. CHIEF OPERATOR HYDROFORMER faxed referral to Dr. Chao at that clinic. Reviewed VFE with pt, who verbalized understanding. Because these exercises are performed with a soft, gentle voice, it was recommended the pt continue with them. Discontinued VF adduction and loudness exercises pending ENT findings in order to avoid potentially harmful impact to the VFs. The pt was also instructed to refrain from overuse of voice or abusive behaviors such as yelling. Instructed pt in endurance exercise targeting adequate breath support for extended utterances of speech. The pt read sentences of increasing length, noting where her voice became rough and modifying breath support and loudness to maintain target quality. Assessment Patient Response to Treatment Fair Rehab Potential Good Impairments Identified Dysphonia,Vocal Quality,Vocal Hygiene Progress Towards Goals Good Progress Assessment of Overall Progress Improving Assessment of Improvement The pt continues with moderate roughness of voice despite excellent compliance with HEP and vocal care. Over the course of therapy, the pt initially was demonstrating progress but has plateaued unexpectedly over the last 3-4 wks. It is recommended she undergo videostroboscopy for further evaluation of VFs to r /o pathology that may be preventing her from progressing toward goals. The pt was in agreement with this, and referral made to [facility]. The pt continues to demonstrate excellent awareness of deficits and is able to modify voice to eliminate glottal dougherty. She was receptive to recommendations for continuing VFEs, breath support exercises and breath support; elimination, for now, of VF adduction exercises pending ENT findings. Agreed to f/u after ENT visit. Reviewed with Patient Goals,Progress Being Made,Home Exercise Program Patient/Caregiver Understanding Excellent Plan Amount of Therapy Recommended 1-2 Months Frequency of Treatment Once a Week Length of Session 45 Minutes Treatment Emphasis Next Session F/U from ENT evaluation. Therapeutic Contents Client Education,Home Exercise Program,Voice Training Provided Patient/Caregiver Instruction Home Exercise Program,Plan of Care,Questions/Concerns Therapy Recommendations Continue with Current Program Suggested Referral ENT Other Referrals Videostroboscopy
--- NOTE | 2021-01-02 15:40 | ST.OPDS ---
Visit Care Team Role Provider Type CHAI Mayer Family Provider Advanced Hand Riveter Primary Care Provider Address: [address] [place] [address], [id number] Chino Carrera MD Attending Provider Physician Referring Provider Address: [address] [place] [address] [place], [address] CORNER BEAD OPERATOR Treatment Note CORNER BEAD OPERATOR Treatment Note Start: 07/06/20 14:31 Freq: Status: Active Protocol: Document 01/02/21 15:35 DARRION (Rec: 01/02/21 15:40 DARRION [id number]) Speech Pathology Treatment Note Visit Information Insurance Information Medicare Setting Treatment Setting Outpatient Care Visit Type Note Type Discharge Summary General Information General Information Pt is a 50-yr-old female experiencing hoarseness since Feb when she underwent a dental procedure with anesthesia and intubation. The procedure was to take 15 min but extended to 4 hrs, during which the pt vomited and aspirated on vomit. She was mostly aphonic for ~1 mo; now voice is increasingly hoarse with use and comes and goes. The pt experienced throat swelling and difficulty swallowing immediately after the procedure, both of which have now resolved. She denies pain with voicing. Pt has GERD that is treated with medication as well as a hiatal hernia. She has had recent increase of GERD symptoms and is scheduled for f/u with GI soon. Relevant PMHx includes ACDF surgery (2008 done in [place]) ; hx of asthma controlled with daily inhaler; and dx of diabetes ~1 mo ago. The pt had no dysphagia or dyphonia following ACDF surgery. Subjective Observations/Patient Presentation Pt was last seen 09/07/20 and referred to [facility] for videostroboscopy. Pt has not returned for therapy. Spoke with her by phone today and she reported Dr. Ford found no VF pathology and felt that the voice would heal with time, that continued therapy would not be harmful but also not likely to help, per pt report. The pt reported continued moderate inconsistent hoarsenss of voice. Agreed pt would continue with techniques and exercises and vocal hygiene addressed in therapy, but d/c from therapy now. If voice does not improve or worsens in ~6 mos, pt would ask for new MD orders to return for further evaluation and treatment. Chief Complaint(s) Voice Objective Short Term Goals PT MADE GOOD PROGRESS TOWARD GOALS WITHOUT COMPLETE REHABILITATION OF VOICE 1. The pt will demonstrate understanding of vocal hygiene strategies by identifying 2 or more behavioral modifications she can make to communicate with family without vocal abuse. GOAL MET 2. The pt will perform diaphragmatic breathing in structured tasks with 80% accuracy to improve breath support for speech and voice. 3. The pt will perform laryngeal relaxation techniques with min cues and 80% acc to improve vocal quality and ease. 4. The pt will perform forward focus phonation (FFP) with 80 % accuracy in structured tasks to reduce laryngeal tension and improve vocal production and stamina. 5. The pt will sustain phonation with good vocal quality for 20 sec across three trials to improve breath support for voice and speech and improve vocal function. Longterm Goals 1. The pt will perform diaphragmatic breathing independently in vocal exercises and spontaneous speech tasks to improve breath support for speech and voice. 2. The pt will perform laryngeal relaxation techniques independently to extend duration of speech with optimal vocal quality. 3. The pt will exhibit vocal quality WNL as measured by VHI and CAPE-V perceptual rating forms. 4. The pt will produce vocal quality WNL in spontaneous conversation of 15 min or more to improve ability to maintain vocal stamina for functional conversations and speech tasks. 5. The pt will follow vocal hygiene strategies independently in functional settings to protect voice and maintain good vocal quality, as measured by pt report and clinician judgment. Plan Provided Patient/Caregiver Instruction Home Exercise Program,Plan of Care,Questions/Concerns Therapy Recommendations Discharge from Speech Therapy
== END 2021-01-03 09:21 | disposition home or self-care (01) ==
LOC: SP 10:30
PROVIDERS: Family Provider Registered Nurse Diabetes Educator; PCP Registered Nurse Diabetes Educator; Referring Provider Otolaryngology; Visit Provider Otolaryngology
DX: R49.0 Dysphonia (principal)
CPT/HCPCS: 92507; 92520; 92524

== ENCOUNTER → 2020-09-19 13:30 | Outpatient (CLI) | payer MEDICARE, OTHER, SELFPAY ==
[2020-09-19 16:50] LABS: COVID19 -Nasal RAPID Negative (Negative)
== END ==
PROVIDERS: Family Provider Registered Nurse Diabetes Educator; PCP Registered Nurse Diabetes Educator; Visit Provider Physician Assistant
DX: Z01.812 Encounter for preprocedural laboratory examination (principal); Z20.822 Contact with and (suspected) exposure to COVID-19
CPT/HCPCS: 87635; C9803

== ENCOUNTER → 2020-11-16 09:17 | Outpatient (CLI) | payer MEDICARE, OTHER, SELFPAY ==
[2020-11-16 11:00] LABS: COVID19 -Nasal RAPID Negative (Negative)
== END ==
PROVIDERS: Family Provider Registered Nurse Diabetes Educator; PCP Registered Nurse Diabetes Educator; Visit Provider Student in an Organized Health Care Education/Training Program
DX: Z01.812 Encounter for preprocedural laboratory examination (principal); Z20.822 Contact with and (suspected) exposure to COVID-19
CPT/HCPCS: 87635; C9803

== ENCOUNTER 2020-12-23 11:36 | Emergency (ER) | payer MEDICARE, OTHER, SELFPAY ==
[2020-12-23] VITALS (12 sets, daily range): BP systolic 144–182; BP diastolic 82–110; PULSE 69–90; RESP 16–18; TEMP 36.7; O2SAT 93–100; BMI 26.6
[2020-12-23 13:11] LABS: Add Manual Diff / Slide Review NO; Basophils Absolute Auto 100 /uL (0-100); Basophils Percent Auto 1.2 % (0-2); Eosinophils Absolute Auto 400 /uL (0-450); Eosinophils Percent Auto 6.9 % (2-4); Hematocrit 40.3 % (36-46); Hemoglobin 13.2 g/dL (12.0-16.0); Lymphocytes Absolute Auto 1800 /uL (1100-4500); Lymphocytes Percent Auto 34.2 % (25-40); Mean Corpuscular HGB Conc 32.8 % (30-36); Mean Corpuscular Hemoglobin 25.2 PG (26-34); Monocytes Absolute Auto 400 /uL (0-900); Monocytes Percent Auto 7.8 % (3-14); Neutrophils Absolute Auto 2600 /uL (1500-7000); Neutrophils Percent Auto 49.9 % (50-75); Platelet Count 261 X10^3/uL (150-400); Red Blood Cell Count 5.23 X10^6/uL (4.0-5.2); Red Cell Distribution Width 15.4 % (11.6-14.8); White Blood Cell Count 5.1 X10^3/uL (4.5-11.0)
[2020-12-23] MEDS: ONDANSETRON 4 MG ODT PO (13:11)
[2020-12-23 13:22] LABS: Alanine Aminotransferase 36 IU/L (<35); Albumin 4.5 g/dL (3.5-5.0); Albumin Globulin Ratio 1.3 (1.0-2.8); Alkaline Phosphatase 98 U/L (38-126); Aspartate Aminotransferase 37 IU/L (14-36); BUN Creatinine Ratio 15.5 (6-22); Bilirubin Total 0.3 mg/dL (0.2-1.3); Blood Urea Nitrogen 9 mg/dL (7-17); Calcium 9.8 mg/dL (8.4-10.2); Carbon Dioxide 30 mmol/L (22-32); Chloride 102 mmol/L (98-107); Estimated Glomerular Filt Rate > 60.0 mL/min (>60); Globulin 3.4 g/dL (1.7-4.1); Glucose 84 mg/dL (70-100); HEMOLYSIS 20 (0-50); Potassium 4.1 mmol/L (3.4-5.1); Sodium 141 mmol/L (137-145); Total Protein 7.9 g/dL (6.3-8.2)
[2020-12-23 13:40] LABS: Bacteria Urine None Seen; WBC Urine None Seen (0-5/HPF)
[2020-12-23 13:50] LABS: Amorphous Sediment Urine 1+; Culture Indicated Urine Cult Not Indicated; RBC Urine 5-10/HPF (0-5/HPF)
--- NOTE | 2020-12-23 14:12 | ED_ITS ---
HPI - Headache General Chief Complaint: Headache Stated Complaint: left side eye swellings/thinks stroke Time Seen by Provider: 12/23/20 13:07 Source: patient Mode of arrival: Ambulatory Limitations: no limitations History of Present Illness HPI Narrative: Patient is a 50-year-old female with history of hypertension who presents with left eye swelling and headache that started last evening. She says she used 1 drop of extremely hot hot sauce. She said it burned her stomach in her chest she immediately felt nauseous she broke out into a sweat. 04/23 left-sided headache. She took ibuprofen last night which did not seem to help. She is sensitive to light. She also noted some very mild swelling upper left eyelid. She denies any blurry vision or double vision. She feels nauseous no vomiting. She has no numbness tingling or weakness. MD Complaint: headache Related Data Previous Rx's Medication Instructions Recorded celecoxib 100 mg capsule 100 mg PO BID #180 cap 05/04/20 fluticasone 500 mcg-salmeterol 50 1 inhalation INHALATION BID #180 05/04/20 mcg/dose blistr powdr for each inhalation hydrochlorothiazide 25 mg tablet 25 mg PO DAILY #90 tab 05/04/20 gabapentin 600 mg tablet,extended 1,800 mg PO DAILY #270 tab 06/07/20 release 24 hr venlafaxine 75 mg capsule,extended 75 mg PO DAILY #90 cap 06/11/20 release 24 hr omeprazole 20 mg capsule,delayed 20 mg PO BID #60 cap 06/15/20 release pravastatin 40 mg tablet 40 mg PO BEDTIME #90 tab 08/25/20 Handicap Placard #1 ea 11/16/20 amlodipine 10 mg tablet 10 mg PO DAILY #90 tab 12/20/20 loratadine 10 mg tablet 10 mg PO DAILY #90 tab 12/20/20 montelukast 10 mg tablet 10 mg PO DAILY #90 tab 12/20/20 Allergies Allergy/AdvReac Type Severity Reaction Status Date / Time latex [LATEX] Allergy Unknown RASH Verified 12/23/20 11:47 oxycodone [OXYCODONE] Allergy Unknown RASH/ Verified 12/23/20 11:47 NAUSEA AND VOMITING Review of Systems Review of Systems ROS Unobtainable: All systems reviewed & are unremarkable except as noted in HPI and below Constitutional Constitutional: Denies chills, Denies fever(s), Reports headache(s), Denies lethargy and Denies weakness Eyes Eyes: Denies diplopia, Denies dry eyes, Denies floaters and Denies eye pain ENT Ears, Nose, Mouth, and Throat: Denies vertigo and Reports headache(s) Cardiovascular Cardiovascular: Denies chest pain, Denies irregular heart rhythm, Denies lightheadedness, Denies palpitations, Denies dyspnea, Denies dyspnea on exertion and Denies orthopnea Respiratory Respiratory: Denies cough, Denies dyspnea, Denies dyspnea on exertion and Denies wheezing Gastrointestinal Gastrointestinal: Denies abdominal pain, Denies change in bowel habits, Denies diarrhea, Denies nausea and Denies vomiting Neurologic Neurologic: Denies confusion, Denies vertigo, Reports headache(s) and Denies weakness Psychiatric Psychiatric: Denies confusion Endocrine Endocrine: Denies palpitations Allergic/Immunologic Allergic/Immunologic: Denies wheezing Patient History Medical History Abnormal chest xray (~2004) Allergies Anxiety Arthritis of right hip Asthma Bladder prolapse Cervical spine disease Chicken pox (~1998) Chronic back pain Chronic GERD Chronic low back pain Depression Dyslipidemia Foot pain Fractures GERD (gastroesophageal reflux disease) Headache Hearing loss (~2013) Hiatal hernia Hypertension (~2017) Low back pain Malaria Migraines Mumps Osteoarthritis Prediabetes Radiculopathy, lumbosacral region Recurrent sinusitis Shoulder pain Spine degeneration Spine pain, lumbar Tinnitus (~2013) Type 2 diabetes mellitus without complication Surgical History Anesthesia History of abdominoplasty (~2010) History of appendectomy History of cholecystectomy (~2010) History of discectomy (~2008) History of hysterectomy (~2018) History of umbilical hernia repair (~2004) Toe fracture Family History Father Cancer Mother History of heart disease Hyperlipidemia Hypertension Sister Hypertension Social History Smoking Status: Never smoker Smoking Status: Never smoker alcohol intake frequency: holidays/special occasions only Substance Use Type: marijuana Exam Initial Vital Signs Initial Vital Signs: Vital Signs Pulse Rate 90 12/23/20 11:43 Pulse Oximetry 100 12/23/20 11:43 GENERAL: 50-year-old female in a dark room appears uncomfortable and in no acute distress. HEENT: Head atraumatic,EOMI, pupils reactive, face symmetric, moist mucous membranes no meningeal signs CARDIOVASCULAR: Regular rate and rhythm without murmurs, rubs or gallops. RESPIRATORY: Breath sounds equal bilaterally, no wheezes rales or rhonchi. ABDOMEN: Soft, nontender. Normoactive bowel sounds all 4 quadrants. No guarding or rebound. EXTREMITIES: Normal range of motion, no clubbing or edema. Neurovascularly intact NEUROLOGICAL: Alert and oriented x4.Normal gait and speech. SKIN: Warm, dry, no laceration, no petechiae, no rashes or lesions. Scores NIH Stroke Scale Level of Conciousness: Alert, keenly responsive Ask month/age: Answers both questions correctly. Open/close eyes, close hand: Performs both tasks correctly Best gaze horizontal: Normal Visual kunz: No visual loss Facial palsy: Normal symetrical movement Left arm drift: No drift for full 10 sec Right arm drift: No drift for full 10 sec Left leg drift: No drift for full 5 sec Right leg drift: No drift for full 5 sec Limb ataxia: Absent Sensory on face/arms/legs: Normal, no sensory loss Best language: No aphasia, normal Dysarthria: Normal Extinction or inattention: No abnormality Total NIH Stroke scale score: 0 Course Orders Ordered: ED Orders 12/23/20 13:05 Complete Blood Count AUTO DIFF Stat Comprehensive Metabolic Panel Stat 12/23/20 13:22 Urine Microscopic Stat 12/23/20 14:20 CT head/brain wo con Stat Discontinued Medications Ketorolac Tromethamine (Ketorolac 30 Mg/Ml Vial) 30 mg IM NOW ONE Stop: 12/23/20 14:21 Last Admin: 12/23/20 14:32 Dose: 30 mg Documented by: [email or web address] Ondansetron HCl (Ondansetron 4 Mg/2 Ml Inj) 4 mg IV NOW ONE Stop: 12/23/20 13:08 Last Admin: 12/23/20 13:23 Dose: Not Given Documented by: [email or web address] Ondansetron HCl (Ondansetron 4 Mg Odt) 4 mg PO NOW ONE Stop: 12/23/20 13:09 Last Admin: 12/23/20 13:11 Dose: 4 mg Documented by: CARLOS Vital Signs Vital signs: Vital Signs - 8 hr 12/23/20 12:00 12/23/20 12:30 12/23/20 13:00 Pulse Rate 85 71 76 Respiratory Rate Blood Pressure Pulse Oximetry 100 98 99 12/23/20 13:07 12/23/20 13:20 12/23/20 13:30 Pulse Rate 73 70 71 Respiratory Rate Blood Pressure 178/104 H 160/83 H 154/82 H Pulse Oximetry 100 100 99 12/23/20 14:00 12/23/20 14:28 12/23/20 15:00 Pulse Rate 69 75 Respiratory Rate 16 16 Blood Pressure 148/89 H 144/92 H Pulse Oximetry 98 98 MDM - Headache Lab Data Attestation: I reviewed the patient's lab results. Result diagrams: 12/23/20 13:05 12/23/20 13:05 Labs: Lab Results 12/23/20 12/23/20 12/23/20 Range/Units 13:05 13:05 13:22 WBC 5.1 (4.5-11.0) X10^3/uL RBC 5.23 H (4.0-5.2) X10^6/uL Hgb 13.2 (12.0-16.0) g/dL Hct 40.3 (36-46) % MCV 77.0 L (80-100) fL MCH 25.2 L (26-34) PG MCHC 32.8 (30-36) % RDW 15.4 H (11.6-14.8) % Plt Count 261 (150-400) X10^3/uL Neut % (Auto) 49.9 L (50-75) % Lymph % (Auto) 34.2 (25-40) % Mcminn % (Auto) 7.8 (3-14) % Eos % (Auto) 6.9 H (2-4) % Baso % (Auto) 1.2 (0-2) % Neut # (Auto) 2600 (6378-2054) /uL Lymph # (Auto) 1800 (9835-0338) /uL Mcminn # (Auto) 400 (0-900) /uL Eos # (Auto) 400 (0-450) /uL Baso # (Auto) 100 (0-100) /uL Sodium 141 (137-145) mmol/L Potassium 4.1 (3.4-5.1) mmol/L Chloride 102 (98-107) mmol/L Carbon Dioxide 30 (22-32) mmol/L BUN 9 (7-17) mg/dL Creatinine 0.58 (0.52-1.04) mg/dL Estimated GFR > 60.0 (>60) mL/min BUN/Creatinine Ratio 15.5 (6-22) Glucose 84 (70-100) mg/dL Calcium 9.8 (8.4-10.2) mg/dL Total Bilirubin 0.3 (0.2-1.3) mg/dL AST 37 H (14-36) IU/L ALT 36 H (<35) IU/L Alkaline Phosphatase 98 (38-126) U/L Total Protein 7.9 (6.3-8.2) g/dL Albumin 4.5 (3.5-5.0) g/dL Globulin 3.4 (1.7-4.1) g/dL Albumin/Globulin Ratio 1.3 (1.0-2.8) Urine RBC 5-10/hpf H (0-5/HPF) Urine WBC None seen (0-5/HPF) Amorphous Sediment 1+ Urine Bacteria None seen (None) Ur Culture Indicated? Cult not indicated Point of Care Testing Test Results Negative Urine Dip Bedside Urine Glucose Negative Bedside Urine Bilirubin - Negative Bedside Urine Ketone - Negative Urine Specific [place] 1.015 Bedside Urine Occult Blood + Bedside Urine pH 6.5 Bedside Urine Protein - Negative Bedside Urine Urobilinogen - Negative Bedside Urine Nitrite - Negative Bedside Urine Leukocytes - Negative Esterase Imaging Data CT scan - head: Radiologist's Impression: PROCEDURE: CT HEAD/BRAIN WO CON INDICATIONS: Persistent left-sided headache. TECHNIQUE: Noncontrast 4.5 mm thick angled axial sections acquired from the foramen magnum to the vertex, with coronal and sagittal reformats. For radiation dose reduction, the following was used: automated exposure control, adjustment of mA and/or kV according to patient size. COMPARISON: None. FINDINGS: Image quality: Excellent. CSF spaces: Basal cisterns are patent. No extra-axial fluid collections. Ventricles are normal in size and shape. Brain: No intracranial hemorrhage, mass, or mass effect. Salazar-white matter interface appears preserved. Skull and face: Calvarium and visualized facial bones are intact, without suspicious lesions. Sinuses: Visualized sinuses and mastoids are clear. IMPRESSION: 1. No acute intracranial abnormality. Dictated by: Kobi Hardy M.D. on 12/23/2020 at 14:33 MDM Narrative Medical decision making narrative: Patient has severe headache that started with hot sauce she has no focal deficits CT head is negative headache is improving with Toradol. At this time level of overall reassuring. He is requesting able to go home. At this time I have low suspicion for subarachnoid or meningitis. Discharge Plan Departure Patient Disposition: Home Clinical Impression: Headache Qualifiers: Headache type: unspecified Headache chronicity pattern: acute headache Intractability: not intractable Qualified Code(s): R51.9 - Headache, unspecified Instructions: DI for Headache Activity Restrictions/Additional Instructions: *You have been diagnosed with headache *What to do: At this time her headache is likely induced from hot sauce. Please stay away from the hot sauce. I recommend going home resting and staying hydrated *Continue to take medications as directed Tylenol 1000 mg every 6 hours if needed for [id number] pain Motrin 800 mg every 8 hours if needed for [id number] pain and do not take for 8 hours, you received some in the emergency department *Follow up with your primary care provider in 2-3 days *Return to ER if you should have worsening headache, persistent vomiting, weakness numbness or tingling or any new, worsening or concerning symptoms Prescriptions: No Action gabapentin 600 mg tablet extended release 24 hr 1,800 mg PO DAILY Qty: 270 RF: 3 venlafaxine 75 mg capsule,extended release 24hr 75 mg PO DAILY Qty: 90 RF: 3 pravastatin 40 mg tablet 40 mg PO BEDTIME Qty: 90 RF: 3 (DME) Handicap Placard See Rx Instructions .Route .MEDSUPPLY Qty: 1 RF: 0 amlodipine 10 mg tablet 10 mg PO DAILY Qty: 90 RF: 0 montelukast 10 mg tablet 10 mg PO DAILY Qty: 90 RF: 0 loratadine 10 mg tablet 10 mg PO DAILY Qty: 90 RF: 0 celecoxib 100 mg capsule 100 mg PO BID Qty: 180 RF: 3 fluticasone propion-salmeterol [Advair Diskus] 500-50 mcg/dose blister with device 1 inhalation INHALATION BID Qty: 180 RF: 3 hydrochlorothiazide 25 mg tablet 25 mg PO DAILY Qty: 90 RF: 3 omeprazole 20 mg capsule,delayed release(DR/EC) 20 mg PO BID Qty: 60 RF: 0 Referrals: Linwood Guzman ARNP [Primary Care Provider] -
--- NOTE | 2020-12-23 14:20 | DI.CT.S_ITS ---
PROCEDURE: CT HEAD/BRAIN WO CON INDICATIONS: Persistent left-sided headache. TECHNIQUE: Noncontrast 4.5 mm thick angled axial sections acquired from the foramen magnum to the vertex, with coronal and sagittal reformats. For radiation dose reduction, the following was used: automated exposure control, adjustment of mA and/or kV according to patient size. COMPARISON: None. FINDINGS: Image quality: Excellent. CSF spaces: Basal cisterns are patent. No extra-axial fluid collections. Ventricles are normal in size and shape. Brain: No intracranial hemorrhage, mass, or mass effect. Salazar-white matter interface appears preserved. Skull and face: Calvarium and visualized facial bones are intact, without suspicious lesions. Sinuses: Visualized sinuses and mastoids are clear. IMPRESSION: 1. No acute intracranial abnormality. Dictated by: Kobi Hardy M.D. on 12/23/2020 at 14:33 Approved by: Kobi Hardy M.D. on 12/23/2020 at 14:35
[2020-12-23] MEDS: KETOROLAC 30 MG/ML VIAL IM (14:32)
== END 2020-12-23 15:26 | disposition home or self-care (01) ==
PROVIDERS: Emergency Provider Emergency Medicine; Family Provider Registered Nurse Diabetes Educator; PCP Registered Nurse Diabetes Educator
DX: R51.9 Headache, unspecified (principal); H02.844 Edema of left upper eyelid; R11.0 Nausea
CPT/HCPCS: 36415; 70450; 80053; 81003; 81015; 81025; 85025; 96372; 99284; J1885

== ENCOUNTER 2020-12-27 11:22 | Emergency (ER) | payer MEDICARE, OTHER, SELFPAY ==
[2020-12-27 11:27] VITALS: BP 127/85; PULSE 98; RESP 14; TEMP 37.1; O2SAT 100; BMI 26.2
--- NOTE | 2020-12-27 12:01 | PC.NURSE ---
pt dx with shingles recently. left eye swollen and unable to open for visual acuity. reports severe pain to left eye and family reports swelling has increased since dx. pcp saw today for fu and sent to er for check.
--- NOTE | 2020-12-27 13:53 | PC.NURSE ---
Pt reporting severe pain to her L eye. made aware. MD ordered 4 mg IM Morphine and is aware of pt's oxycodone and tramadol allergy. Cleared it with the pt that she does not have any allergies to morphine.
[2020-12-27] MEDS: MORPHINE 4 MG/ML INJ IM (13:59)
--- NOTE | 2020-12-27 14:37 | ED.EYEPROB ---
HPI - Eye Problem General Chief complaint: Eye Problems Stated complaint: shingles in left eye/sent by PCP Time Seen by Provider: 12/27/20 14:12 Source: patient Mode of arrival: Ambulatory Limitations: no limitations History of Present Illness HPI Narrative: Patient is a 50-year-old female who presents with left eye and headache. I actually saw and evaluated her 4 days ago for severe headache. She says 2 days after that of rash developed on the left side of her forehead and eyelid. She was seen and evaluated at another facility and started on valacyclovir and pain medication. She now is presenting with increased left eye pain inability to open her left eye due to swelling. She denies any neck pain headache continues to only be on the left side of her head she denies any fever or chills. MD chief complaint: eye pain and eye redness Location: left eye Related Data Previous Rx's Medication Instructions Recorded celecoxib 100 mg capsule 100 mg PO BID #180 cap 05/04/20 fluticasone 500 mcg-salmeterol 50 1 inhalation INHALATION BID #180 05/04/20 mcg/dose blistr powdr for each inhalation hydrochlorothiazide 25 mg tablet 25 mg PO DAILY #90 tab 05/04/20 gabapentin 600 mg tablet,extended 1,800 mg PO DAILY #270 tab 06/07/20 release 24 hr venlafaxine 75 mg capsule,extended 75 mg PO DAILY #90 cap 06/11/20 release 24 hr omeprazole 20 mg capsule,delayed 20 mg PO BID #60 cap 06/15/20 release pravastatin 40 mg tablet 40 mg PO BEDTIME #90 tab 08/25/20 Handicap Placard #1 ea 11/16/20 amlodipine 10 mg tablet 10 mg PO DAILY #90 tab 12/20/20 loratadine 10 mg tablet 10 mg PO DAILY #90 tab 12/20/20 montelukast 10 mg tablet 10 mg PO DAILY #90 tab 12/20/20 erythromycin 0.5 inch EYE-LEFT Q4HRWA PRN #3.5 g 12/27/20 prednisone 50 mg PO DAILY #5 tab 12/27/20 Allergies Allergy/AdvReac Type Severity Reaction Status Date / Time latex [LATEX] Allergy Unknown RASH Verified 12/27/20 11:27 oxycodone [OXYCODONE] Allergy Unknown RASH/ Verified 12/27/20 11:27 NAUSEA AND VOMITING tramadol AdvReac Severe Severe Verified 12/27/20 11:27 vomiting. Review of Systems Review of Systems ROS Unobtainable: All systems reviewed & are unremarkable except as noted in HPI and below Constitutional Constitutional: Denies chills, Denies fever(s), Reports headache(s), Denies lethargy and Denies weakness Eyes Eyes: Reports as per HPI, Denies blurry vision and Denies exophthalmos ENT Ears, Nose, Mouth, and Throat: Reports as per HPI and Reports headache(s) Cardiovascular Cardiovascular: Denies chest pain, Denies irregular heart rhythm, Denies lightheadedness, Denies palpitations, Denies dyspnea, Denies dyspnea on exertion and Denies orthopnea Respiratory Respiratory: Denies cough, Denies dyspnea, Denies dyspnea on exertion and Denies wheezing Integumentary/Breasts Skin/Breast: Denies pruritus, Reports erythema, Reports rash, Reports skin pain, Reports skin swelling and Denies wounds Neurologic Neurologic: Reports headache(s) and Denies weakness Endocrine Endocrine: Denies palpitations Allergic/Immunologic Allergic/Immunologic: Denies wheezing Patient History Medical History Abnormal chest xray (~2004) Allergies Anxiety Arthritis of right hip Asthma Bladder prolapse Cervical spine disease Chicken pox (~1998) Chronic back pain Chronic GERD Chronic low back pain Depression Dyslipidemia Foot pain Fractures GERD (gastroesophageal reflux disease) Headache Hearing loss (~2013) Hiatal hernia Hypertension (~2017) Low back pain Malaria Migraines Mumps Osteoarthritis Prediabetes Radiculopathy, lumbosacral region Recurrent sinusitis Shoulder pain Spine degeneration Spine pain, lumbar Tinnitus (~2013) Type 2 diabetes mellitus without complication Surgical History Anesthesia History of abdominoplasty (~2010) History of appendectomy History of cholecystectomy (~2010) History of discectomy (~2008) History of hysterectomy (~2018) History of umbilical hernia repair (~2004) Toe fracture Family History Father Cancer Mother History of heart disease Hyperlipidemia Hypertension Sister Hypertension Social History Smoking Status: Never smoker Smoking Status: Never smoker alcohol intake frequency: holidays/special occasions only Substance Use Type: marijuana Exam Initial Vital Signs Initial Vital Signs: Vital Signs Temperature 98.7 F 12/27/20 11:27 Pulse Rate 98 H 12/27/20 11:27 Respiratory Rate 14 12/27/20 11:27 Blood Pressure 127/85 12/27/20 11:27 Pulse Oximetry 100 12/27/20 11:27 GENERAL: Alert 50-year-old female appears in pain and in [no acute] distress. HEENT: Head atraumatic,EOMI, pupils reactive, face symmetric, [moist] mucous membranes. Left eye was treated with proparacaine, stained with fluorescein. No dye uptake. No foreign body. NECK: No meningeal signs, supple CARDIOVASCULAR: Peripheral pulses intact RESPIRATORY: No respiratory distress EXTREMITIES: Normal range of motion, no clubbing or edema. Neurovascularly intact NEUROLOGICAL: Alert and oriented x4.Normal gait and speech. SKIN: Vesicular lesions noted on left forehead and erythema on left upper eye lid. No involvement of nose or ear at this time Course Orders Ordered: Discontinued Medications Fluorescein Sodium (Fluorescein 1 Mg Strip) 1 mg EYE-BOTH NOW ONE Stop: 12/27/20 14:40 Last Admin: 12/27/20 14:43 Dose: 1 mg Documented by: ROSALIA Morphine Sulfate (Morphine 4 Mg/Ml Inj) 4 mg IM NOW ONE Stop: 12/27/20 13:54 Last Admin: 12/27/20 13:59 Dose: 4 mg Documented by: ROSALIA Proparacaine HCl (Proparacaine 0.5% Ophth Amy) 1 drops EYE-BOTH NOW ONE Stop: 12/27/20 14:40 Last Admin: 12/27/20 14:43 Dose: 1 drop Documented by: ROSALIA Vital Signs Vital signs: Vital Signs - 8 hr 12/27/20 11:27 12/27/20 15:32 Temperature 98.7 F 98.6 F Pulse Rate 98 H 90 Respiratory Rate 14 18 Blood Pressure 127/85 152/90 H Pulse Oximetry 100 99 MDM - Eye Problem MDM Narrative Medical decision making narrative: At this time I do not appreciate dendrites and the eye is no fluorescein uptake however patient left eye is quite erythematous swollen with obvious zoster. This will need monitoring. This time I do not believe this is disseminated. She has no meningeal signs the there does not seem to be encephalitis involvement. However I recommend monitoring it. 1512- Dr. Jeff Kimho recommends continued oral treatment in may use erythromycin ointment for comfort Discharge Plan Departure Patient Disposition: Home Clinical Impression: Herpes zoster Qualifiers: Herpes zoster complications: without complications Qualified Code(s): B02.9 - Zoster without complications Instructions: DI for Shingles Activity Restrictions/Additional Instructions: *You have been diagnosed with shingles *What to do: Your currently on most medications to help him. This can last for a few weeks however symptoms should start to improve over the next 1-2 weeks. Please monitor symptoms closely for eye involvement it can still progress. You will need to follow-up with ophthalmology *Continue to take medications as directed Prednisone 40 mg once daily for 5 days Erythromycin ointment in left eye every 2-4 hours as needed for comfort *Follow up with your primary care provider in 2-3 days *Return to ER if you should have increasing eye pain, blurry vision, double vision, fever, worsening headache, neck pain or any new, worsening or concerning symptoms Prescriptions: New prednisone 50 mg tablet 50 mg PO DAILY Qty: 5 RF: 0 erythromycin 5 mg/gram (0.5 %) ointment 0.5 inch EYE-LEFT Q4HRWA PRN (Reason: pain) Qty: 3.5 RF: 0 No Action gabapentin 600 mg tablet extended release 24 hr 1,800 mg PO DAILY Qty: 270 RF: 3 venlafaxine 75 mg capsule,extended release 24hr 75 mg PO DAILY Qty: 90 RF: 3 pravastatin 40 mg tablet 40 mg PO BEDTIME Qty: 90 RF: 3 (DME) Handicap Placard See Rx Instructions .Route .MEDSUPPLY Qty: 1 RF: 0 amlodipine 10 mg tablet 10 mg PO DAILY Qty: 90 RF: 0 montelukast 10 mg tablet 10 mg PO DAILY Qty: 90 RF: 0 loratadine 10 mg tablet 10 mg PO DAILY Qty: 90 RF: 0 celecoxib 100 mg capsule 100 mg PO BID Qty: 180 RF: 3 fluticasone propion-salmeterol [Advair Diskus] 500-50 mcg/dose blister with device 1 inhalation INHALATION BID Qty: 180 RF: 3 hydrochlorothiazide 25 mg tablet 25 mg PO DAILY Qty: 90 RF: 3 omeprazole 20 mg capsule,delayed release(/EC) 20 mg PO BID Qty: 60 RF: 0 Referrals: Juanita Aguilar MD [Physician] - Linwood Guzman ARNP [Primary Care Provider] -
[2020-12-27] MEDS: FLUORESCEIN 1 MG STRIP EYE-BOTH (14:43)
[2020-12-27] MEDS: PROPARACAINE 0.5% OPHTH SOL 1 DROPS EYE-BOTH (14:43)
[2020-12-27 15:32] VITALS: BP 152/90; PULSE 90; RESP 18; TEMP 37; O2SAT 99
== END 2020-12-27 15:32 | disposition home or self-care (01) ==
PROVIDERS: Emergency Provider Emergency Medicine; Family Provider Registered Nurse Diabetes Educator; PCP Registered Nurse Diabetes Educator
DX: B02.9 Zoster without complications (principal); H57.12 Ocular pain, left eye
CPT/HCPCS: 96372; 99283; J2270

== ENCOUNTER → 2021-05-15 14:14 | Outpatient (CLI) | payer MEDICARE, OTHER, SELFPAY ==
[2021-05-15 16:37] LABS: COVID-19 CEPHEID PCR (VTM/NP) Negative (Negative)
== END ==
PROVIDERS: Family Provider Registered Nurse Diabetes Educator; PCP Registered Nurse Diabetes Educator; Visit Provider Nurse Practitioner Family
DX: Z20.822 Contact with and (suspected) exposure to COVID-19 (principal)
CPT/HCPCS: C9803; U0003

== ENCOUNTER → 2021-05-25 14:18 | Outpatient (CLI) | payer MEDICARE, OTHER, SELFPAY ==
[2021-05-25 15:12] LABS: COVID19 -Nasal RAPID POSITIVE (Negative)
== END ==
PROVIDERS: Family Provider Registered Nurse Diabetes Educator; PCP Registered Nurse Diabetes Educator; Referring Provider Nurse Practitioner Family; Visit Provider Nurse Practitioner Family
DX: R43.2 Parageusia (principal); R05.9 Cough, unspecified
CPT/HCPCS: 87635

== ENCOUNTER 2021-06-02 02:10 | Emergency (ER) | payer MEDICARE, OTHER, SELFPAY ==
--- NOTE | 2021-06-02 02:34 | ED_ITS ---
HPI - Abdominal Pain General Chief Complaint: Abdominal Pain Stated Complaint: abdomin pain-surgery 2 weeks ago Time Seen by Provider: 06/02/21 02:17 History of Present Illness HPI narrative: 51-year-old female nonsmoker with history of hypertension, diabetes, hyperlipidemia presents with a chief complaint of difficulty with bowel movements and lower abdominal pain since yesterday. She has severe pain in her lower abdomen and has been struggling to have bowel movements. She has been taking stool softeners with minimal to little relief. She has had no fever chills and denies nausea or vomiting. Her pain is crampy and colicky and seems to come in waves. She does complain of some pain at the incision site and is concerned that it seems to be bulging. She states that she was straining to have a bowel movement and thinks she may have felt a pop a few days ago at the incision is concerned about hernia. The patient was tested at 1 of our outpatient clinics in the aftermath of her surgery and found to be COVID positive. She denies any chest pain or shortness of breath Related Data Previous Rx's Medication Instructions Recorded Handicap Placard #1 ea 11/16/20 amlodipine 10 mg tablet 10 mg PO DAILY #90 tab 05/10/21 celecoxib 100 mg capsule 100 mg PO BID #180 cap 05/10/21 fluticasone 500 mcg-salmeterol 50 1 inh INHALATION BID #180 each 05/10/21 mcg/dose blistr powdr for inhalation (Advair Diskus) gabapentin 600 mg tablet,extended 1,800 mg PO DAILY #270 tab 05/10/21 release 24 hr hydrochlorothiazide 25 mg tablet 25 mg PO DAILY #90 tab 05/10/21 loratadine 10 mg tablet 10 mg PO DAILY #90 tab 05/10/21 montelukast 10 mg tablet 10 mg PO DAILY #90 tab 05/10/21 pravastatin 40 mg tablet 40 mg PO BEDTIME #90 tab 05/10/21 venlafaxine 75 mg capsule,extended 75 mg PO DAILY #90 cap 05/10/21 release 24 hr bupropion HCl 150 mg 24 hr tablet, 150 mg PO .COMPLEX #60 tab 06/01/21 extended release Allergies Allergy/AdvReac Type Severity Reaction Status Date / Time latex [LATEX] Allergy Unknown RASH Verified 05/10/21 14:05 oxycodone [OXYCODONE] Allergy Unknown RASH/ Verified 05/10/21 14:05 NAUSEA AND VOMITING tramadol AdvReac Severe Severe Verified 05/10/21 14:05 vomiting. Review of Systems Review of Systems Narrative: GENERAL: Denies chills, fatigue, malaise, fever, sweats. HEENT: Denies sinus pain, ear pain, sore throat, difficulty swallowing, dizziness. RESPIRATORY: Denies dyspnea, cough, wheezing, hemoptysis, sputum. CARDIOVASCULAR: Denies chest pain, palpitations, orthopnea, edema, GASTROINTESTINAL: See HPI : Denies dysuria, frequency, incontinence, hematuria, urinary retention. MUSCULOSKELETAL: denies weakness, joint pain, or bony pain SKIN: Denies rash, skin lesions, or other NEUROLOGIC: Denies weakness, headache, numbness, change in speech, confusion, seizures, incoordination. PSYCHIATRIC: No concerning psychosocial issues. 12 point review of systems is negative except for those stated above Patient History Medical History Abnormal chest xray (~2004) Allergies Anxiety Arthritis of right hip Asthma Bladder prolapse Cervical spine disease Chicken pox (~1998) Chronic back pain Chronic GERD Chronic low back pain Depression Dyslipidemia Foot pain Fractures GERD (gastroesophageal reflux disease) Headache Hearing loss (~2013) Hiatal hernia Hypertension (~2017) Low back pain Malaria Migraines Mumps Osteoarthritis Prediabetes Radiculopathy, lumbosacral region Recurrent sinusitis Shoulder pain Spine degeneration Spine pain, lumbar Tinnitus (~2013) Type 2 diabetes mellitus without complication Surgical History Anesthesia History of abdominoplasty (~2010) History of appendectomy History of cholecystectomy (~2010) History of discectomy (~2008) History of hysterectomy (~2018) History of umbilical hernia repair (~2004) Toe fracture Family History Father Cancer Mother History of heart disease Hyperlipidemia Hypertension Sister Hypertension Social History Smoking Status: Never smoker Smoking Status: Never smoker alcohol intake frequency: holidays/special occasions only Substance Use Type: marijuana Exam Narrative Exam Narrative: GENERAL: [51] year old patient appears stated age. Well-developed patient, in mild distress. HEAD: Atraumatic. Normocephalic. EYES: Pupils equal round and reactive. Extraocular motions intact. No scleral icterus. No injection or drainage. ENT: Nose without bleeding, purulent drainage. Throat without erythema, tonsillar hypertrophy or exudate. Airway patent. NECK: Trachea midline. Non tender CARDIOVASCULAR: Regular rate and rhythm without murmurs, gallops, or rubs. RESPIRATORY: Clear to auscultation. Breath sounds equal bilaterally. No wheezes, rales, or rhonchi. GASTROINTESTINAL: Abdomen soft,generalized tenderness, decreased bowel sounds. Incision is C/D/I and there is a palpable bulge that is tender. No erythema or warmth EXTREMITIES: No edema or joint tenderness. BACK: Nontender without deformity or crepitance. No flank tenderness. NEURO: AOx3. SKIN: No rash or erythema of visible areas Initial Vital Signs Initial Vital Signs: Vital Signs Temperature 97.7 F 06/02/21 02:35 Pulse Rate 94 H 06/02/21 02:35 Respiratory Rate 20 06/02/21 02:35 Blood Pressure 154/88 H 06/02/21 02:35 Pulse Oximetry 99 06/02/21 02:35 Course Orders Ordered: ED Orders 06/02/21 02:34 XR acute abdomen series Stat 06/02/21 02:44 COVID19 - ADMIT (OUTBOARD SYSTEM OPERATOR swab/PCR) Stat 06/02/21 03:42 CT abdomen pelvis wo con Stat 06/02/21 04:38 Complete Blood Count AUTO DIFF Stat Comprehensive Metabolic Panel Stat Discontinued Medications Bisacodyl (Bisacodyl 10 Mg Supp) 10 mg NE NOW ONE Stop: 06/02/21 05:05 Last Admin: 06/02/21 05:15 Dose: 10 mg Documented by: FAWN Sodium Chloride (Normal Saline 0.9%) 1,000 mls @ 1,000 mls/hr IV BOLUS ONE Stop: 06/02/21 03:33 Sodium Chloride (Normal Saline 0.9%) 1,000 mls @ 1,000 mls/hr IV BOLUS ONE Stop: 06/02/21 04:41 Vital Signs Vital signs: Vital Signs - 8 hr 06/02/21 02:35 Temperature 97.7 F Pulse Rate 94 H Respiratory Rate 20 Blood Pressure 154/88 H Pulse Oximetry 99 MDM - Abdominal Pain Lab Data Result diagrams: 06/02/21 04:38 06/02/21 04:38 Labs: Lab Results 06/02/21 06/02/21 06/02/21 Range/Units 02:44 04:38 04:38 WBC 6.2 (4.5-11.0) X10^3/uL RBC 4.52 (4.0-5.2) X10^6/uL Hgb 11.4 L (12.0-16.0) g/dL Hct 34.5 L (36-46) % MCV 76.3 L (80-100) fL MCH 25.1 L (26-34) PG MCHC 32.9 (30-36) % RDW 14.2 (11.6-14.8) % Plt Count 390 (150-400) X10^3/uL Neut % (Auto) 61.9 (50-75) % Lymph % (Auto) 23.7 L (25-40) % [place] % (Auto) 5.3 (3-14) % Eos % (Auto) 7.7 H (2-4) % Baso % (Auto) 1.4 (0-2) % Neut # (Auto) 3800 (6347-3758) /uL Lymph # (Auto) 1500 (1691-3208) /uL [place] # (Auto) 300 (0-900) /uL Eos # (Auto) 500 H (0-450) /uL Baso # (Auto) 100 (0-100) /uL Sodium 139 (137-145) mmol/L Potassium 4.3 (3.4-5.1) mmol/L Chloride 103 (98-107) mmol/L Carbon Dioxide 29 (22-32) mmol/L BUN 9 (7-17) mg/dL Creatinine 0.77 (0.52-1.04) mg/dL Estimated GFR > 60.0 (>60) mL/min BUN/Creatinine Ratio 11.7 (6-22) Glucose 138 H (70-100) mg/dL Calcium 9.1 (8.4-10.2) mg/dL Total Bilirubin 0.3 (0.2-1.3) mg/dL AST 29 (14-36) IU/L ALT 18 (<35) IU/L Alkaline Phosphatase 90 (38-126) U/L Total Protein 7.5 (6.3-8.2) g/dL Albumin 4.2 (3.5-5.0) g/dL Globulin 3.3 (1.7-4.1) g/dL Albumin/Globulin Ratio 1.3 (1.0-2.8) SARS-CoV-2 (PCR) Positive H (Negative) Imaging Data CT scan - abdomen/pelvis: Radiologist's Impression: Postsurgical findings within the central mid abdomen with a subcutaneous fluid collection, possibly a seroma versus subcutaneous edema measuring 7 x 1.4 x 2.3 cm. Mild right hydronephrosis without obstructing renal or ureteral calculus. No evidence of colitis, diverticulitis or bowel obstruction MDM Narrative Medical decision making narrative: Patient with ongoing decreased bowel movements and constipation and a painful lump at the incision site. There is no fever or chills, no redness or warmth overlying the seroma. Hernia considered but thought unlikely given presentation and CT scan. Bowel obstruction considered but thought unlikely given imaging. Patient given reassurance, return precautions, encouraged to follow closely with her surgical team. Questions answered to her apparent satisfaction Discharge Plan Departure Patient Disposition: Home Clinical Impression: Abdominal pain, Constipation Instructions: DI for Abdominal Pain-Adult, DI for Constipation Activity Restrictions/Additional Instructions: *You have been diagnosed with [abdominal pain due to constipation and and incisional seroma. There is no evidence of hernia or bowel obstruction *What to do: *Take over the counter medications as directed: 1. Metamucil - is a bulk forming laxative and adds fiber 2. Colace - softens your stool 3. Dulcolax suppository - stimulates your bowels 4. Magnesium citrate is often used by surgeons and tool shaper setup operator to help there patient has clear out their bowels prior to procedures, this can be obtained [id number] and we would recommend taking half a bottle initially and waiting 4-6 hours for result prior to taking the other half *Follow up with your surgeon in 2-3 days, call for appointment *Return to ER if you should have any new, worsening or concerning symptoms *Drink plenty of water and eat foods high in fiber *Stay as active as you can as this helps move your bowels as well Prescriptions: No Action (DME) Handicap Placard See Rx Instructions .Route .MEDSUPPLY Qty: 1 0RF Rx Instructions: As directed bupropion HCl 150 mg tablet extended release 24 hr 150 mg PO .COMPLEX Qty: 60 2RF Rx Instructions: 150 mg PO; 1 tablet Q a.m., after 3 days increase to 2 tabs Q a.m. if no side effects amlodipine 10 mg tablet 10 mg PO DAILY Qty: 90 3RF celecoxib 100 mg capsule 100 mg PO BID Qty: 180 3RF fluticasone propion-salmeterol [Advair Diskus] 500-50 mcg/dose blister with device 1 inh INHALATION BID Qty: 180 3RF gabapentin 600 mg tablet extended release 24 hr 1,800 mg PO DAILY Qty: 270 3RF hydrochlorothiazide 25 mg tablet 25 mg PO DAILY Qty: 90 1RF loratadine 10 mg tablet 10 mg PO DAILY Qty: 90 3RF montelukast 10 mg tablet 10 mg PO DAILY Qty: 90 3RF pravastatin 40 mg tablet 40 mg PO BEDTIME Qty: 90 3RF venlafaxine 75 mg capsule,extended release 24hr 75 mg PO DAILY Qty: 90 3RF Rx Instructions: Take one capsule by mouth once a day. Referrals: Linwood Guzman ARNP [Primary Care Provider] -
--- NOTE | 2021-06-02 02:34 | DI.RAD.S_ITS ---
PROCEDURE: XR ACUTE ABDOMEN SERIES INDICATIONS: Abdominal pain, recent surgery TECHNIQUE: One view chest and two views of the abdomen were acquired. COMPARISON: None. FINDINGS: Surgical changes and devices: Cholecystectomy clips. Chest: Lungs are clear. Heart size is normal. No pleural effusions. No pneumoperitoneum. Abdomen: Bowel gas pattern is normal. No suspicious calcifications. Visualized solid organ contours appear normal. Bones: No suspicious bony lesions. IMPRESSION: No acute disease process identified by plain film radiograph. Consider CT scan of the abdomen/pelvis for additional evaluation of patient's symptoms persist or worsen. Dictated by: Lynnette Jolley MD, PhD on 06/02/2021 at 8:07 Approved by: Lynnette Jolley MD, PhD on 06/02/2021 at 8:08
[2021-06-02 02:35] VITALS: BP 154/88; PULSE 94; RESP 20; TEMP 36.5; O2SAT 99
--- NOTE | 2021-06-02 03:42 | DI.CT.S_ITS ---
PROCEDURE: CT ABDOMEN PELVIS WO CON INDICATIONS: severe abdominal pain, recent surgery, decreased BM, swellin TECHNIQUE: Axial sections were acquired from the lung bases to the pubic symphysis. Coronal and sagittal reformats were performed. For radiation dose reduction, the following was used: automated exposure control, adjustment of mA and/or kV according to patient size. COMPARISON: None. FINDINGS: Image quality: Excellent. Lung bases: Unremarkable. Heart: No significant findings. URINARY: Right Kidney: Mild right hydronephrosis. No renal calculi. Right Ureter: Mild right hydroureter. No visualized renal calculi. Left Kidney: No stones or hydronephrosis. Left Ureter: No hydroureter. Bladder: Normal wall thickness. No stones. ABDOMEN: Liver: Unremarkable. Gallbladder: The gallbladder has been removed. Biliary ducts: Unremarkable. Pancreas: Unremarkable. Spleen: Unremarkable. Adrenal Glands: Unremarkable. Stomach and Bowel: Stomach, small bowel loops, and colon are unremarkable. Peritoneum: No abnormal intraperitoneal fluid. No free air. Ventral Wall: Postsurgical changes are present within the subcutaneous fat of the anterior abdominal wall. Areas of low attenuation most suggestive of fluid are present with the largest dimension measuring 1.5 cm AP x 7.9 cm transverse. Abdominal Nodes: No enlarged retroperitoneal or mesenteric lymph nodes. Vessels: Aorta and inferior vena cava are normal in size. PELVIS: Pelvic Organs: Surgical changes reflecting hysterectomy are noted. Pelvic Nodes: Unremarkable. Miscellaneous: No inguinal hernias are seen. Bones: Unremarkable. IMPRESSION: 1. Anterior wall surgical changes with fluid as above suggestive of seroma. Developing abscess cannot be definitively excluded and recommend continued interval follow-up as indicated. 2. Mild right hydronephrosis and hydroureter without visualized source of obstruction. This could represent a recently passed stone. However, if concern persists, contrast study is recommended for further evaluation of potential infection or mass lesion. The above findings are concordant with preliminary report. Dictated by: Leslie Johnson M.D. on 06/02/2021 at 9:11 Approved by: Leslie Johnson M.D. on 06/02/2021 at 10:31
[2021-06-02 04:06] LABS: COVID19 - ADMIT (NP swab/PCR) POSITIVE (Negative)
[2021-06-02 05:00] LABS: Add Manual Diff / Slide Review NO; Basophils Absolute Auto 100 /uL (0-100); Basophils Percent Auto 1.4 % (0-2); Eosinophils Absolute Auto 500 /uL (0-450); Eosinophils Percent Auto 7.7 % (2-4); Hematocrit 34.5 % (36-46); Hemoglobin 11.4 g/dL (12.0-16.0); Lymphocytes Absolute Auto 1500 /uL (1100-4500); Lymphocytes Percent Auto 23.7 % (25-40); Mean Corpuscular HGB Conc 32.9 % (30-36); Mean Corpuscular Hemoglobin 25.1 PG (26-34); Mean Corpuscular Volume 76.3 fL (80-100); Monocytes Absolute Auto 300 /uL (0-900); Monocytes Percent Auto 5.3 % (3-14); Neutrophils Absolute Auto 3800 /uL (1500-7000); Neutrophils Percent Auto 61.9 % (50-75); Platelet Count 390 X10^3/uL (150-400); Red Blood Cell Count 4.52 X10^6/uL (4.0-5.2); Red Cell Distribution Width 14.2 % (11.6-14.8); White Blood Cell Count 6.2 X10^3/uL (4.5-11.0)
[2021-06-02 05:07] LABS: Alanine Aminotransferase 18 IU/L (<35); Albumin 4.2 g/dL (3.5-5.0); Albumin Globulin Ratio 1.3 (1.0-2.8); Alkaline Phosphatase 90 U/L (38-126); Aspartate Aminotransferase 29 IU/L (14-36); BUN Creatinine Ratio 11.7 (6-22); Bilirubin Total 0.3 mg/dL (0.2-1.3); Blood Urea Nitrogen 9 mg/dL (7-17); Calcium 9.1 mg/dL (8.4-10.2); Carbon Dioxide 29 mmol/L (22-32); Chloride 103 mmol/L (98-107); Estimated Glomerular Filt Rate > 60.0 mL/min (>60); Globulin 3.3 g/dL (1.7-4.1); Glucose 138 mg/dL (70-100); Potassium 4.3 mmol/L (3.4-5.1); Sodium 139 mmol/L (137-145); Total Protein 7.5 g/dL (6.3-8.2)
[2021-06-02 05:08] LABS: HEMOLYSIS 65 (0-50)
[2021-06-02] MEDS: BISACODYL 10 MG SUPP PR (05:15)
[2021-06-02 06:06] VITALS: BP 111/64; PULSE 79; RESP 16; O2SAT 97
== END 2021-06-02 07:10 | disposition home or self-care (01) ==
PROVIDERS: Emergency Provider Emergency Medicine; Family Provider Registered Nurse Diabetes Educator; PCP Registered Nurse Diabetes Educator
DX: R10.30 Lower abdominal pain, unspecified (principal); K59.00 Constipation, unspecified; L76.34 Postprocedural seroma of skin and subcutaneous tissue following other procedure; U07.1 COVID-19
CPT/HCPCS: 36415; 74022; 74176; 80053; 85025; 87635; 99282; 99284; C9803

== ENCOUNTER → 2021-06-15 10:12 | Outpatient (CLI) | payer MEDICARE, OTHER, SELFPAY ==
[2021-06-15 12:26] LABS: Hemoglobin 12.4 g/dL (12.0-16.0); Mean Corpuscular HGB Conc 32.7 % (30-36); Mean Corpuscular Hemoglobin 25.5 PG (26-34); Mean Corpuscular Volume 78.1 fL (80-100); Platelet Count 301 X10^3/uL (150-400); Red Blood Cell Count 4.86 X10^6/uL (4.0-5.2); Red Cell Distribution Width 14.9 % (11.6-14.8); White Blood Cell Count 3.6 X10^3/uL (4.5-11.0)
[2021-06-15 12:40] LABS: Alanine Aminotransferase 24 IU/L (<35); Albumin 4.9 g/dL (3.5-5.0); Albumin Globulin Ratio 1.5 (1.0-2.8); Alkaline Phosphatase 99 U/L (38-126); Aspartate Aminotransferase 29 IU/L (14-36); BUN Creatinine Ratio 15.6 (6-22); Bilirubin Total 0.4 mg/dL (0.2-1.3); Blood Urea Nitrogen 12 mg/dL (7-17); Calcium 9.7 mg/dL (8.4-10.2); Carbon Dioxide 30 mmol/L (22-32); Chloride 101 mmol/L (98-107); Cholesterol 270 mg/dL (140-199); Estimated Glomerular Filt Rate > 60.0 mL/min (>60); Globulin 3.3 g/dL (1.7-4.1); Glucose 92 mg/dL (70-100); HDL Cholesterol 80 mg/dL (40-60); HEMOLYSIS < 15 (0-50); LDL Cholesterol Calculated 176 mg/dL (<100); Potassium 4.2 mmol/L (3.4-5.1); Sodium 139 mmol/L (137-145); Total Protein 8.2 g/dL (6.3-8.2); Triglycerides 69 mg/dL (35-150)
[2021-06-15 12:41] LABS: Hemoglobin A1C% w Est Avg Glu 5.5 % (4.0-6.0); Prothrombin Time 11.8 SECONDS (10.1-12.7)
[2021-06-15 12:44] LABS: PTT Partial Thromboplastin Tim 33 SECONDS (26.4-36.2)
[2021-06-15 13:41] LABS: TSH w/ Reflex to FT4 0.56 uIU/mL (0.47-4.68)
[2021-06-15 15:07] LABS: Microalbumin Urine Random 4.4 mg/dL (0-1.6)
[2021-06-15 16:23] LABS: HIV 1 & 2 Ab/Ag 4th Gen Combo NEGATIVE (NEGATIVE)
== END ==
PROVIDERS: Family Provider Registered Nurse Diabetes Educator; PCP Registered Nurse Diabetes Educator; Referring Provider Registered Nurse Diabetes Educator; Visit Provider Registered Nurse Diabetes Educator
DX: E11.9 Type 2 diabetes mellitus without complications (principal); E78.5 Hyperlipidemia, unspecified; Z01.818 Encounter for other preprocedural examination
CPT/HCPCS: 36415; 80053; 80061; 82043; 82570; 83036; 84443; 85027; 85610; 85730; 87389

== ENCOUNTER → 2021-09-16 11:18 | Outpatient (CLI) | payer MEDICARE, OTHER, SELFPAY ==
--- NOTE | 2021-09-16 | DI.MG.S_ITS ---
BILATERAL DIGITAL SCREENING MAMMOGRAM 3D/2D WITH CAD WITH AUGMENTATION: 09/16/2021 CLINICAL: Routine screening. Family history of breast cancer. Comparison is made to exams dated: 08/24/2020 mammogram, 08/05/2019 mammogram - [facility], and 06/02/2018 mammogram - [facility]. The tissue of both breasts is heterogeneously dense. This may lower the sensitivity of mammography. Current study was also evaluated with a Computer Aided Detection (CAD) system. Bilateral breast implants are stable. There is a stable benign focal asymmetry in the right breast. No significant masses, calcifications, or other findings are seen in either breast. There has been no significant interval change. IMPRESSION: BENIGN There is no mammographic evidence of malignancy. A 1 year screening mammogram is recommended. This exam was interpreted at Station ID: [id number]. NOTE: For mammograms, a report in lay terms will be sent to the patient. Approximately 15% of breast malignancies will not be visualized mammographically. In the management of a palpable breast mass, a negative mammogram must not discourage biopsy of a clinically suspicious lesion. Electronically Signed By: Jm gonzales/denia:09/18/2021 07:08:17 letter sent: Normal Exam ACR BI-RADS Category 2: Benign Finding(s) 3342F
== END ==
PROVIDERS: Family Provider Registered Nurse Diabetes Educator; PCP Registered Nurse Diabetes Educator; Referring Provider Registered Nurse Diabetes Educator; Visit Provider Registered Nurse Diabetes Educator
DX: Z12.31 Encounter for screening mammogram for malignant neoplasm of breast (principal); Z80.3 Family history of malignant neoplasm of breast
CPT/HCPCS: 77063; 77067

== ENCOUNTER → 2022-08-08 09:32 | Outpatient (CLI) | payer MEDICARE, OTHER, SELFPAY ==
[2022-08-08 10:15] LABS: Hematocrit 42.5 % (36-46); Hemoglobin 13.9 g/dL (12.0-16.0); Mean Corpuscular HGB Conc 32.6 % (30-36); Mean Corpuscular Hemoglobin 24.9 PG (26-34); Mean Corpuscular Volume 76.4 fL (80-100); Platelet Count 244 X10^3/uL (150-400); Red Blood Cell Count 5.56 X10^6/uL (4.0-5.2); Red Cell Distribution Width 14.1 % (11.6-14.8); White Blood Cell Count 4.9 X10^3/uL (4.5-11.0)
[2022-08-08 10:46] LABS: Alanine Aminotransferase 21 IU/L (<35); Albumin 4.5 g/dL (3.5-5.0); Albumin Globulin Ratio 1.1 (1.0-2.8); Alkaline Phosphatase 100 U/L (38-126); Aspartate Aminotransferase 25 IU/L (14-36); BUN Creatinine Ratio 15.9 (6-22); Bilirubin Total 0.4 mg/dL (0.2-1.3); Blood Urea Nitrogen 11 mg/dL (7-17); Calcium 9.3 mg/dL (8.4-10.2); Carbon Dioxide 29 mmol/L (22-32); Chloride 103 mmol/L (98-107); Cholesterol 320 mg/dL (140-199); Estimated Glomerular Filt Rate > 60 mL/min (>60); Glucose 113 mg/dL (70-100); HDL Cholesterol 63 mg/dL (40-60); HEMOLYSIS < 15 (0-50); LDL Cholesterol Calculated 238 mg/dL (<100); Potassium 4.1 mmol/L (3.4-5.1); Sodium 140 mmol/L (137-145); Total Protein 8.5 g/dL (6.3-8.2); Triglycerides 97 mg/dL (35-150)
[2022-08-08 10:48] LABS: Creatinine Urine Random 140.2 mg/dL
[2022-08-08 10:53] LABS: Microalbumi Creatinin Ratio Ur 29.9 ug/mg CR (<30); Microalbumin Urine Random 4.2 mg/dL (0-1.6)
[2022-08-08 11:17] LABS: TSH w/ Reflex to FT4 0.69 uIU/mL (0.47-4.68)
[2022-08-08 11:49] LABS: Hemoglobin A1C% w Est Avg Glu 6.4 % (4.0-6.0)
== END ==
PROVIDERS: Family Provider Registered Nurse Diabetes Educator; PCP Registered Nurse Diabetes Educator; Referring Provider Registered Nurse Diabetes Educator; Visit Provider Registered Nurse Diabetes Educator
DX: I10 Essential (primary) hypertension (principal); E11.9 Type 2 diabetes mellitus without complications; E78.5 Hyperlipidemia, unspecified
CPT/HCPCS: 36415; 80053; 80061; 82043; 82570; 83036; 84443; 85027

== ENCOUNTER → 2022-10-22 12:52 | Outpatient (CLI) | payer MEDICARE, OTHER, SELFPAY ==
--- NOTE | 2022-10-22 | DI.MG.S_ITS ---
BILATERAL DIGITAL SCREENING MAMMOGRAM 3D/2D WITH CAD WITH AUGMENTATION: 10/22/2022 CLINICAL: Patient presents for routine screening. S/P bilateral augmentation. Comparison is made to exams dated: 09/16/2021 mammogram, 08/24/2020 mammogram, 08/05/2019 mammogram - [facility], and 06/02/2018 mammogram - [facility]. Both breasts are heterogeneously dense, which may obscure small masses (category c / 51-75% glandular tissue). Current study was also evaluated with a Computer Aided Detection (CAD) system. Bilateral breast implants are stable. There is a stable benign focal asymmetry in the right breast. No significant masses, calcifications, or other findings are seen in either breast. There has been no significant interval change. IMPRESSION: BENIGN There is no mammographic evidence of malignancy. A 1 year screening mammogram is recommended. Based on the Tyrer Cuzick model (a risk assessment model) the patient's lifetime risk is 13.0% and her 10 year risk is 3.3%. According to the ACR, ACS, and NCCN guidelines, an annual breast MRI exam along with mammogram is recommended if the patient's lifetime risk is 20% or greater. This exam was interpreted at Station ID: [id number]. NOTE: For mammograms, a report in lay terms will be sent to the patient. Approximately 15% of breast malignancies will not be visualized mammographically. In the management of a palpable breast mass, a negative mammogram must not discourage biopsy of a clinically suspicious lesion. Electronically Signed By: Brenda reeves/denia:10/22/2022 13:49:21 letter sent: Normal Exam ACR BI-RADS Category 2: Benign Finding(s) 3342F
== END ==
PROVIDERS: Family Provider Registered Nurse Diabetes Educator; PCP Registered Nurse Diabetes Educator; Referring Provider Registered Nurse Diabetes Educator; Visit Provider Registered Nurse Diabetes Educator
DX: Z12.31 Encounter for screening mammogram for malignant neoplasm of breast (principal); Z98.82 Breast implant status
CPT/HCPCS: 77063; 77067

== ENCOUNTER → 2022-10-27 10:49 | Outpatient (CLI) | payer MEDICARE, OTHER, SELFPAY ==
[2022-10-27 11:55] LABS: Cholesterol 271 mg/dL (140-199); Glucose 101 mg/dL (70-100); HDL Cholesterol 75 mg/dL (40-60); LDL Cholesterol Calculated 173 mg/dL (<100); Triglycerides 114 mg/dL (35-150)
[2022-10-28 09:26] LABS: Labcorp Hemoglobin (Hb) A1c 6.3 % (4.8-5.6)
== END ==
PROVIDERS: Family Provider Registered Nurse Diabetes Educator; PCP Registered Nurse Diabetes Educator; Referring Provider Registered Nurse Diabetes Educator; Visit Provider Registered Nurse Diabetes Educator
DX: E11.9 Type 2 diabetes mellitus without complications (principal); E78.5 Hyperlipidemia, unspecified
CPT/HCPCS: 36415; 80061; 82947; 83036

== ENCOUNTER → 2023-08-27 12:42 | Outpatient (CLI) | payer MEDICARE, OTHER, SELFPAY ==
[2023-08-27 14:59] LABS: Hematocrit 41.4 % (36-46); Hemoglobin 13.7 g/dL (12.0-16.0); Mean Corpuscular Hemoglobin 25.6 PG (26-34); Mean Corpuscular Volume 77.4 fL (80-100); Platelet Count 278 X10^3/uL (150-400); Red Blood Cell Count 5.35 X10^6/uL (4.0-5.2); Red Cell Distribution Width 14.2 % (11.6-14.8); White Blood Cell Count 4.5 X10^3/uL (4.5-11.0)
[2023-08-27 15:16] LABS: Alanine Aminotransferase 15 IU/L (<35); Albumin 4.5 g/dL (3.5-5.0); Albumin Globulin Ratio 1.3 (1.0-2.8); Alkaline Phosphatase 85 U/L (38-126); Aspartate Aminotransferase 25 IU/L (14-36); BUN Creatinine Ratio 11.6 (6-22); Bilirubin Total 0.6 mg/dL (0.2-1.3); Blood Urea Nitrogen 8 mg/dL (7-17); Calcium 9.6 mg/dL (8.4-10.2); Carbon Dioxide 30 mmol/L (22-32); Chloride 100 mmol/L (98-107); Cholesterol 305 mg/dL (140-199); Estimated Glomerular Filt Rate > 60 mL/min (>60); Globulin 3.6 g/dL (1.7-4.1); Glucose 87 mg/dL (70-100); HDL Cholesterol 69 mg/dL (40-60); HEMOLYSIS < 15 (0-50); LDL Cholesterol Calculated 211 mg/dL (<100); Potassium 4.3 mmol/L (3.4-5.1); Sodium 140 mmol/L (137-145); Total Protein 8.1 g/dL (6.3-8.2); Triglycerides 124 mg/dL (35-150)
[2023-08-27 15:40] LABS: TSH w/ Reflex to FT4 0.77 uIU/mL (0.47-4.68)
[2023-08-27 17:30] LABS: Creatinine Urine Random 22.8 mg/dL
[2023-08-27 17:34] LABS: Microalbumi Creatinin Ratio Ur 39.4 ug/mg CR (<30); Microalbumin Urine Random 0.9 mg/dL (0-1.6)
[2023-08-29 03:19] LABS: x Labcorp Estim. Avg Glu (eAG) 128 mg/dL (.); x Labcorp Hemoglobin A1c 6.1 % (4.8-5.6)
== END ==
PROVIDERS: Family Provider Registered Nurse Diabetes Educator; PCP Registered Nurse Diabetes Educator; Referring Provider Registered Nurse Diabetes Educator; Visit Provider Registered Nurse Diabetes Educator
DX: E78.5 Hyperlipidemia, unspecified (principal); I10 Essential (primary) hypertension; R73.03 Prediabetes
CPT/HCPCS: 36415; 80053; 80061; 82043; 82570; 83036; 84443; 85027

== ENCOUNTER → 2023-10-24 10:59 | Outpatient (CLI) | payer MEDICARE, OTHER, SELFPAY ==
--- NOTE | 2023-10-24 | DI.MG.S_ITS ---
BILATERAL DIGITAL SCREENING MAMMOGRAM 3D/2D WITH CAD WITH AUGMENTATION: 10/24/2023 CLINICAL: Routine screening. Family history of breast cancer. Comparison is made to exams dated: 10/22/2022 mammogram, 09/16/2021 mammogram, and 08/24/2020 mammogram - [facility]. Both breasts are heterogeneously dense, which may obscure small masses (category c / 51-75% glandular tissue). Current study was also evaluated with a Computer Aided Detection (CAD) system. Bilateral breast implants are stable. There is a stable benign focal asymmetry in the right breast. No significant masses, calcifications, or other findings are seen in either breast. There has been no significant interval change. IMPRESSION: BENIGN There is no mammographic evidence of malignancy. A 1 year screening mammogram is recommended. Based on the Tyrer Cuzick model (a risk assessment model) the patient's lifetime risk is 12.9% and her 10 year risk is 3.4%. According to the ACR, ACS, and NCCN guidelines, an annual breast MRI exam along with mammogram is recommended if the patient's lifetime risk is 20% or greater. This exam was interpreted at Station ID: [id number]. NOTE: For mammograms, a report in lay terms will be sent to the patient. Approximately 15% of breast malignancies will not be visualized mammographically. In the management of a palpable breast mass, a negative mammogram must not discourage biopsy of a clinically suspicious lesion. Electronically Signed By: Brenda reeves/denia:10/24/2023 16:39:14 letter sent: Normal Exam ACR BI-RADS Category 2: Benign Finding(s) 3342F
== END ==
LOC: MAMMO 11:00
PROVIDERS: Family Provider Registered Nurse Diabetes Educator; PCP Registered Nurse Diabetes Educator; Referring Provider Registered Nurse Diabetes Educator; Visit Provider Registered Nurse Diabetes Educator
DX: Z12.31 Encounter for screening mammogram for malignant neoplasm of breast (principal); Z80.3 Family history of malignant neoplasm of breast; R92.333 Mammographic heterogeneous density, bilateral breasts
CPT/HCPCS: 77063; 77067

== ENCOUNTER → 2024-09-19 10:09 | Outpatient (CLI) | payer MEDICARE, OTHER, SELFPAY ==
[2024-09-19 11:13] LABS: Hematocrit 40.6 % (36-46); Hemoglobin 13.4 g/dL (12.0-16.0); Mean Corpuscular HGB Conc 32.9 % (30-36); Mean Corpuscular Hemoglobin 25.2 PG (26-34); Mean Corpuscular Volume 76.6 fL (80-100); Platelet Count 233 X10^3/uL (150-400); Red Blood Cell Count 5.29 X10^6/uL (4.0-5.2); Red Cell Distribution Width 14.3 % (11.6-14.8); White Blood Cell Count 4.3 X10^3/uL (4.5-11.0)
[2024-09-19 11:21] LABS: Hemoglobin A1C% w Est Avg Glu 5.6 % (4.0-6.0)
[2024-09-19 11:49] LABS: Alanine Aminotransferase 17 IU/L (<35); Albumin 4.5 g/dL (3.5-5.0); Albumin Globulin Ratio 1.6 (1.0-2.8); Alkaline Phosphatase 84 U/L (38-126); Aspartate Aminotransferase 24 IU/L (14-36); BUN Creatinine Ratio 8.5 (6-22); Bilirubin Total 0.6 mg/dL (0.2-1.3); Blood Urea Nitrogen 7 mg/dL (7-17); Calcium 9.1 mg/dL (8.4-10.2); Carbon Dioxide 27 mmol/L (22-32); Chloride 100 mmol/L (98-107); Cholesterol 297 mg/dL (140-199); Estimated Glomerular Filt Rate > 60 mL/min (>60); Globulin 2.9 g/dL (1.7-4.1); Glucose 87 mg/dL (70-100); HDL Cholesterol 55 mg/dL (40-60); HEMOLYSIS < 15 (0-50); LDL Cholesterol Calculated 230 mg/dL (<100); Potassium 4.3 mmol/L (3.4-5.1); Sodium 138 mmol/L (137-145); Total Protein 7.4 g/dL (6.3-8.2); Triglycerides 62 mg/dL (35-150)
[2024-09-19 12:10] LABS: Creatinine Urine Random 87.51 mg/dL
[2024-09-19 12:15] LABS: Microalbumin Urine Random 1.1 mg/dL (0-1.6)
[2024-09-19 12:20] LABS: TSH w/ Reflex to FT4 0.49 uIU/mL (0.47-4.68)
== END ==
PROVIDERS: Family Provider Registered Nurse Diabetes Educator; PCP Registered Nurse Diabetes Educator; Referring Provider Registered Nurse Diabetes Educator; Visit Provider Registered Nurse Diabetes Educator
DX: R73.03 Prediabetes (principal); I10 Essential (primary) hypertension; E78.5 Hyperlipidemia, unspecified; R80.9 Proteinuria, unspecified
CPT/HCPCS: 36415; 80053; 80061; 82043; 82570; 83036; 84443; 85027

== ENCOUNTER → 2025-04-09 14:26 | Outpatient (CLI) | payer MEDICARE, OTHER, SELFPAY ==
--- NOTE | 2025-04-09 14:29 | DI.CT.S_ITS ---
PROCEDURE: CT SOFT TISSUE NECK W CON INDICATIONS: Neck pain and swelling TECHNIQUE: After the administration of intravenous contrast, 3.0 mm axial sections acquired from the sella to the aortic arch. Additional oblique axial 3.0 mm sections acquired through the pharynx. 3 mm thick coronal and sagittal reformats were generated. For radiation dose reduction, the following was used: automated exposure control. COMPARISON: None. FINDINGS: Image quality: Excellent. Lymph nodes: No enlarged lymph nodes seen throughout the neck. Vessels: Visualized vasculature appears patent. Neck spaces: The oropharynx, nasopharynx, and pharynx demonstrate no mucosal lesions. The vocal cords, false vocal cords, pyriform sinuses, epiglottis, vallecula, and tongue base all appear normal. Extramucosal spaces appear unremarkable. Glands: The parotid and submandibular glands appear normal. Thyroid gland demonstrates no significant abnormality. Miscellaneous: Visualized brain and orbits appear normal. Lung apices appear clear. Superficial soft tissues appear normal. Bones: No suspicious bony lesions. Degenerative changes status post C5-C6 discectomy. Visualized sinuses and mastoids appear unremarkable. IMPRESSION: No cause for patient's pain is identified. No acute findings within the neck. Dictated by: Joshua Estrada M.D. on 04/09/2025 at 16:03 Approved by: Joshua Estrada M.D. on 04/09/2025 at 16:06
[2025-04-09 15:34] LABS: Add Manual Diff / Slide Review NO; Hematocrit 40.3 % (36-46); Hemoglobin 13.4 g/dL (12.0-16.0); Lymphocytes Absolute Auto 2700 /uL (1100-4500); Mean Corpuscular HGB Conc 33.3 % (30-36); Mean Corpuscular Hemoglobin 25.3 PG (26-34); Mean Corpuscular Volume 76.0 fL (80-100); Platelet Count 312 X10^3/uL (150-400)
[2025-04-09 15:48] LABS: Alanine Aminotransferase 19 IU/L (<35); Albumin 4.9 g/dL (3.5-5.0); Albumin Globulin Ratio 1.2 (1.0-2.8); Alkaline Phosphatase 85 U/L (38-126); Blood Urea Nitrogen 10 mg/dL (7-17); Calcium 9.6 mg/dL (8.4-10.2); Carbon Dioxide 30 mmol/L (22-32); Chloride 99 mmol/L (98-107); Estimated Glomerular Filt Rate > 60 mL/min (>60); Globulin 4.0 g/dL (1.7-4.1); Glucose 74 mg/dL (70-99); HEMOLYSIS < 15 (0-50); Potassium 3.2 mmol/L (3.4-5.1); Sodium 140 mmol/L (137-145); Total Protein 8.9 g/dL (6.3-8.2)
== END ==
PROVIDERS: Family Provider Registered Nurse Diabetes Educator; PCP Registered Nurse Diabetes Educator; Referring Provider Family Medicine; Visit Provider Family Medicine
DX: M54.2 Cervicalgia (principal); R22.1 Localized swelling, mass and lump, neck
CPT/HCPCS: 70491; 80053; 85025; Q9967

== ENCOUNTER → 2025-07-10 11:06 | Outpatient (CLI) | payer MEDICARE, OTHER, SELFPAY ==
--- NOTE | 2025-07-10 11:07 | DI.MG.S_ITS ---
MM screening mammo implant BI: 07/10/2025. BI-RADS: 2 CLINICAL: 55-year old female for bilateral screening mammogram. Tyrer-Cuzick lifetime risk of 5.5%. No personal or first-degree family history of breast cancer. The patient has bilateral implants. PRIOR EXAMS 10/24/2023, 10/22/2022, 09/16/2021, 08/24/2020. MAMMOGRAPHY TECHNIQUE: 2D and 3D (tomosynthesis) digital mammographic views obtained, with additional images as needed for full coverage. Current study was also evaluated with a Computer Aided Detection (CAD) system. DENSITY C. The breasts are heterogeneously dense, which may obscure small masses. IMPLANTS Right: Breast implant present on the right. Left: Breast implant present on the left. MAMMOGRAPHY FINDINGS Right: Benign-appearing asymmetry noted on the right. There are no suspicious masses, calcifications, or other findings in the breast. No significant change from comparison. Left: There are no suspicious masses, calcifications, or other findings in the breast. No significant change from comparison. IMPRESSION: * No evidence of malignancy with benign findings. RECOMMENDATIONS Bilateral * Annual screening mammography. OVERALL ASSESSMENT CATEGORY BI-RADS-2: Benign. [employer] recommends annual screening mammography beginning at age 40 for women with average risk of breast cancer. ELECTRONICALLY SIGNED: Jm Bhatt M.D. on 07/12/2025 at 06:41:45 AM PT Interpreting Station ID: [id number]
== END ==
PROVIDERS: Family Provider Registered Nurse Diabetes Educator; PCP Registered Nurse Diabetes Educator; Referring Provider Registered Nurse Diabetes Educator; Visit Provider Registered Nurse Diabetes Educator
DX: Z12.31 Encounter for screening mammogram for malignant neoplasm of breast (principal); R92.333 Mammographic heterogeneous density, bilateral breasts; Z98.82 Breast implant status
CPT/HCPCS: 77063; 77067